=== PATIENT | female | born 1930 | race African-American/Black ===

== ENCOUNTER 2021-02-13 21:17 | Inpatient (IN) | payer OTHER ==
[2021-02-13] MEDS ORDERED: NA CHLORIDE 0.9% 1,000 ML ONE (23:24)
[2021-02-13 23:48] LABS: Absolute Lymphocytes (CBC) 1.2 K/uL (0.7-4.9); Basophils % 0.6 % (0-1.3); Hematocrit 34.9 % (36.0-45.0); Lymphocytes % 11.6 % (15.3-44.8); MPV 7.3 fL (7.6-11.3); RBC Red Blood Cell Count 3.64 M/uL (3.86-4.86)
[2021-02-14 00:01] LABS: Protime INR 1.24
[2021-02-14 00:02] LABS: Albumin 3.5 g/dL (3.4-5.0); Bilirubin Direct 0.2 mg/dL (0-0.2); Bilirubin Total 0.7 mg/dL (0.2-1.0); Magnesium 2.4 mg/dL (1.8-2.4); Potassium 4.5 mmol/L (3.5-5.1); Protein, Total 7.3 g/dL (6.4-8.2); Troponin (Emerg Dept Use Only) 0.1 ng/mL (0.0-0.045)
--- NOTE | 2021-02-14 00:09 | EDPHYS ---
Physician Documentation [facility] Name: Pamela Alvarez Age: 89 yrs Sex: Female : 1930 Arrival Date: 02/13/2021 Time: 21:21 Bed 16 Private MD: ED Physician Damian Alvares HPI: 02/13 22:31 This 89 yrs old Black Female presents to ER via EMS with complaints of Weakness. fang 22:31 The patient presents to the emergency department with weakness of the. fang Historical: - Allergies: 21:28 Sulfa (Sulfonamide Antibiotics); em - PMHx: 21:28 Arthritis; Chronic pain; High Cholesterol; Hypertension; GERD; em - PSHx: 21:28 None; em - Immunization history:: Adult Immunizations up to date. - Social history:: Smoking status: Patient denies any tobacco usage or history of. ROS: 22:32 Constitutional: Negative for fever, chills, and weight loss, Eyes: Negative for injury, fang pain, redness, and discharge, ENT: Negative for injury, pain, and discharge, Neck: Negative for injury, pain, and swelling, Cardiovascular: Negative for chest pain, palpitations, and edema, Respiratory: Negative for shortness of breath, cough, wheezing, and pleuritic chest pain, Abdomen/GI: Negative for abdominal pain, nausea, vomiting, diarrhea, and constipation, Back: Negative for injury and pain, : Negative for injury, bleeding, discharge, and swelling, Skin: Negative for injury, rash, and discoloration, Psych: Negative for depression, anxiety, suicide ideation, homicidal ideation, and hallucinations, Allergy/Immunology: Negative for hives, rash, and allergies, Endocrine: Negative for neck swelling, polydipsia, polyuria, polyphagia, and marked weight changes, Hematologic/Lymphatic: Negative for swollen nodes, abnormal bleeding, and unusual bruising. 22:32 MS/extremity: Negative for acute changes, injury or acute deformity, contusion. 22:32 Neuro: Positive for weakness. Exam: 22:32 Constitutional: This is a well developed, well nourished patient who is awake, alert, fang and in no acute distress. Head/Face: Normocephalic, atraumatic. Eyes: Pupils equal round and reactive to light, extra-ocular motions intact. Lids and lashes normal. Conjunctiva and sclera are non-icteric and not injected. Cornea within normal limits. Periorbital areas with no swelling, redness, or edema. ENT: Nares patent. No nasal discharge, no septal abnormalities noted. Tympanic membranes are normal and external auditory canals are clear. Oropharynx with no redness, swelling, or masses, exudates, or evidence of obstruction, uvula midline. Mucous membranes moist. Neck: Trachea midline, no thyromegaly or masses palpated, and no cervical lymphadenopathy. Supple, full range of motion without nuchal rigidity, or vertebral point tenderness. No Meningismus. Chest/axilla: Normal chest wall appearance and motion. Nontender with no deformity. No lesions are appreciated. Cardiovascular: Regular rate and rhythm with a normal S1 and S2. No gallops, murmurs, or rubs. Normal PMI, no JVD. No pulse deficits. Respiratory: Lungs have equal breath sounds bilaterally, clear to auscultation and percussion. No rales, rhonchi or wheezes noted. No increased work of breathing, no retractions or nasal flaring. Abdomen/GI: Soft, non-tender, with normal bowel sounds. No distension or tympany. No guarding or rebound. No evidence of tenderness throughout. Back: No spinal tenderness. No costovertebral tenderness. Full range of motion. Female : Normal external genitalia. Skin: Warm, dry with normal turgor. Normal color with no rashes, no lesions, and no evidence of cellulitis. MS/ Extremity: Pulses equal, no cyanosis. Neurovascular intact. Full, normal range of motion. Psych: Awake, alert, with orientation to person, place and time. Behavior, mood, and affect are within normal limits. 22:32 Neuro: Orientation: appropriate for stated age, no acute changes, Mentation: is normal, Memory: is normal, Cranial nerves: grossly normal, is grossly normal based on the patient's age, no acute changes, Cerebellar function: is grossly normal, is grossly normal based on the patient's age, no acute changes, Motor: is normal, is grossly normal based on the patient's age, no acute changes, moves all fours, strength is normal, Sensation: is normal, no obvious gross deficits, appropriate no acute changes, Gait: not tested. Deep tendon reflexes are 2+ (normal) in the bilateral brachioradialis, bicep, tricep and patellar and Achilles tendons, Babinski testing is normal, seizure activity, is not displayed by the patient. Vital Signs: 21:22 BP 128 / 56; Pulse 94; Resp 18; Temp 98.6(O); Pulse Ox 96% on R/A; Weight 76.2 kg; em Height 5 ft. 7 in. (170.18 cm); Pain 0/10; 02/14 00:00 BP 137 / 66; Pulse 88; Resp 25; Pulse Ox 100% on R/A; jb4 00:45 BP 133 / 63; Pulse 85; Resp 16; Pulse Ox 100% on R/A; jb4 02:08 BP 147 / 68 LA Supine; Pulse 80; oe 02:10 BP 124 / 49 LA Sitting; Pulse 88; oe 02:12 BP 118 / 57 LA Standing; Pulse 94; oe 03:00 BP 158 / 84; Pulse 94; Resp 16; Pulse Ox 97% on R/A; jb4 03:45 BP 125 / 55; Pulse 87; Resp 16; Pulse Ox 95% on R/A; jb4 02/13 21:22 Body Mass Index 26.31 (76.20 kg, 170.18 cm) em MDM: 02/13 21:44 Patient medically screened. fang 22:34 Differential diagnosis: Nonspecific abd pain. Differential Diagnosis altered mental fang status. Data reviewed: vital signs, nurses notes, diagnostic data from outside facility, cardiac enzymes, CBC, EKG, electrolytes, hepatic panel, radiologic studies, lab test result(s), CBC, electrolytes, hepatic panel, urinalysis, EKG. Data interpreted: sports doctor: rate is 94 beats/min, rhythm is regular, Pulse oximetry: on room air is 96 %. Test interpretation: by ED physician or midlevel provider: ECG, plain radiologic studies. Counseling: I had a detailed discussion with the patient and/or guardian regarding: the historical points, exam findings, and any diagnostic results supporting the discharge/admit diagnosis, lab results, radiology results, the need for outpatient follow up, for definitive care, an flight agent. 02/13 22:26 Order name: Basic Metabolic Panel [facility] 02/13 22: Order name: CBC with Diff; Complete Time: 23:57 [facility] 02/13 22: Order name: LFT's; Complete Time: 00:02 fang 02/13 22:26 Order name: Magnesium; Complete Time: 00:02 [facility] 02/13 22:26 Order name: NT PRO-BNP; Complete Time: 00:02 [facility] 02/13 22:26 Order name: PT-INR; Complete Time: 00:17 [facility] 02/13 22:26 Order name: Troponin (emerg Dept Use Only); Complete Time: 00:02 [facility] 02/13 22:26 Order name: Basic Metabolic Panel; Complete Time: 00:02 [facility] 02/14 00:05 Order name: Stool Culture [facility] 02/14 00:05 Order name: Occult Blood [facility] 02/14 00:05 Order name: Fecal Leukocyte Stain [facility] 02/14 02:23 Order name: COVID-19 : Document "Date of Symptom Onset" if Symptomatic. em 02/14 02:53 Order name: CORONAVIRUS [facility] 02/14 03:45 Order name: SARS-COV-2 RT PCR [facility] 02/13 22:26 Order name: XRAY Chest (1 view) [facility] 02/13 22:26 Order name: EKG; Complete Time: 22:27 [facility] 02/13 22:26 Order name: Cardiac monitoring; Complete Time: 23:36 [facility] 02/13 22:26 Order name: EKG - Nurse/Tech; Complete Time: 23:36 [facility] 02/13 22:26 Order name: IV Saline Lock; Complete Time: 23:36 [facility] 02/13 22:26 Order name: Labs collected and sent; Complete Time: 23:36 [facility] 02/13 22:26 Order name: O2 Per Protocol; Complete Time: 23:36 [facility] 02/13 22:26 Order name: O2 Sat Monitoring; Complete Time: 23:36 [facility] 02/13 22:26 Order name: CT Head Brain wo Cont [facility] 02/13 22:26 Order name: Orthostatics: after bolus; Complete Time: 02:20 [facility] 02/14 00:05 Order name: CT Abd/Pelvis - Without Contrast [facility] Administered Medications: 23:30 Drug: NS 0.9% 500 ml Route: IV; Rate: bolus; Site: right antecubital; jb4 02/14 00:00 Follow up: Response: No adverse reaction; IV Status: Completed infusion; IV Intake: jb4 500ml 00:28 Drug: NS 0.9% 1000 ml Route: IV; Rate: 125 ml/hr; Site: right antecubital; jb4 04:07 Follow up: Response: No adverse reaction; IV Status: Infusion continued upon admission jb4 Disposition: 02/14/21 00:08 Hospitalization ordered by Jose Jack for Inpatient Admission. Preliminary diagnosis are Weakness, Acute kidney failure, Diarrhea, unspecified. - Bed requested for Telemetry/MedSurg (Inpatient). - Status is Inpatient Admission. jb4 - Condition is Fair. - Problem is new. - Symptoms have improved. Signatures: Dispatcher [employer] EDDamian Johnson MD MD cha Munoz, Edgar, RN RN em Vijay Obando, FAMILY PSYCHOLOGIST-C FAMILY PSYCHOLOGIST-Cla1 Marianne Ortega RN RN Frantz Carvajal RN RN jb4 Corrections: (The following items were deleted from the chart) 03:46 00:08 Hospitalization Ordered by Jose Jack MD for Inpatient Admission. Preliminary cg diagnosis is Weakness; Acute kidney failure; Diarrhea, unspecified. Bed requested for Telemetry/MedSurg (Inpatient). Status is Inpatient Admission. Condition is Fair. Problem is new. Symptoms have improved. [facility] 04:08 06 22:26 Urine Dipstick-Ancillary ordered. [facility] jb4 02/14 04:10 03:46 02/14/2021 00:08 Hospitalization Ordered by Jose Jack MD for Inpatient jb4 Admission. Preliminary diagnosis is Weakness; Acute kidney failure; Diarrhea, unspecified. Bed requested for Telemetry/MedSurg (Inpatient). Status is Inpatient Admission. Condition is Fair. Problem is new. Symptoms have improved. cg
--- NOTE | 2021-02-14 00:09 | ER ---
Nurse's Notes [facility] Name: Pamela Alvarez Age: 89 yrs Sex: Female : 1930 Arrival Date: 02/13/2021 Time: 21:21 Bed 16 Private MD: Diagnosis: Weakness;Acute kidney failure;Diarrhea, unspecified Presentation: 02/13 21:22 Chief complaint: EMS states: called out for fall this morning, but did not seek medical em attention, family called EMS this evening for weakness and diarrhea for one day, pt denies chest pain or shortness of breath. Coronavirus screen: Client denies travel out of the [place] in the last 14 days. Ebola Screen: Patient negative for fever greater than or equal to 101.5 degrees Fahrenheit, and additional compatible Ebola Virus Disease symptoms Patient denies exposure to infectious person. Patient denies travel to an Ebola-affected area in the 21 days before illness onset. No symptoms or risks identified at this time. No acute neurological deficit is noted. The patients blood glucose was checked before arriving to the hospital and was found to be normal. Initial Sepsis Screen: Does the patient meet any 2 criteria? No. Patient's initial sepsis screen is negative. Does the patient have a suspected source of infection? No. Patient's initial sepsis screen is negative. Risk Assessment: Do you want to hurt yourself or someone else? Patient reports no desire to harm self or others. Onset of symptoms was February 13, 2021. 21:22 Method Of Arrival: EMS: [facility] em 21:22 Acuity: SARA 3 em Historical: - Allergies: 21:28 Sulfa (Sulfonamide Antibiotics); em - PMHx: 21:28 Arthritis; Chronic pain; High Cholesterol; Hypertension; GERD; em - PSHx: 21:28 None; em - Immunization history:: Adult Immunizations up to date. - Social history:: Smoking status: Patient denies any tobacco usage or history of. Screenin:15 Abuse screen: Denies threats or abuse. Nutritional screening: No deficits noted. jb4 Tuberculosis screening: No symptoms or risk factors identified. Fall Risk Fall in past 12 months (25 points). IV access (20 points). Gait- Weak (10 pts.). Assessment: 21:30 General: Appears in no apparent distress. comfortable, Behavior is calm, cooperative, jb4 appropriate for age. Pain: Denies pain. Neuro: Level of Consciousness is awake, alert, obeys commands, Oriented to person, place, time, situation. Cardiovascular: Patient's skin is warm and dry. Respiratory: Airway is patent Respiratory effort is even, unlabored, Respiratory pattern is regular, symmetrical. GI: Reports diarrhea. : No signs and/or symptoms were reported regarding the genitourinary system. EENT: No signs and/or symptoms were reported regarding the EENT system. Derm: Skin is intact, Skin is pink, warm \T\ dry. Musculoskeletal: Circulation, motion, and sensation intact. Range of motion: intact in all extremities. 23:00 Reassessment: Patient appears in no apparent distress at this time. Patient and/or jb4 family updated on plan of care and expected duration. Pain level reassessed. Patient is alert, oriented x 3, equal unlabored respirations, skin warm/dry/pink. 02/14 00:29 Reassessment: Patient appears in no apparent distress at this time. Patient and/or jb4 family updated on plan of care and expected duration. Pain level reassessed. Patient is alert, oriented x 3, equal unlabored respirations, skin warm/dry/pink. Pt cleaned, peritoneal care performed. Linens changed. Hospitalist at the bedside. 01:30 Reassessment: Patient appears in no apparent distress at this time. Patient and/or jb4 family updated on plan of care and expected duration. Pain level reassessed. Patient is alert, oriented x 3, equal unlabored respirations, skin warm/dry/pink. 02:30 Reassessment: PT is resting peacefully in bed with eyes closed, respirations are even jb4 and unlabored with no s/s of pain or distress noted. 03:30 Reassessment: Patient appears in no apparent distress at this time. No changes from jb4 previously documented assessment. Patient and/or family updated on plan of care and expected duration. Pain level reassessed. Vital Signs: 02/13 21:22 BP 128 / 56; Pulse 94; Resp 18; Temp 98.6(O); Pulse Ox 96% on R/A; Weight 76.2 kg; em Height 5 ft. 7 in. (170.18 cm); Pain 0/10; 02/14 00:00 BP 137 / 66; Pulse 88; Resp 25; Pulse Ox 100% on R/A; jb4 00:45 BP 133 / 63; Pulse 85; Resp 16; Pulse Ox 100% on R/A; jb4 02:08 BP 147 / 68 LA Supine; Pulse 80; oe 02:10 BP 124 / 49 LA Sitting; Pulse 88; oe 02:12 BP 118 / 57 LA Standing; Pulse 94; oe 03:00 BP 158 / 84; Pulse 94; Resp 16; Pulse Ox 97% on R/A; jb4 03:45 BP 125 / 55; Pulse 87; Resp 16; Pulse Ox 95% on R/A; jb4 02/13 21:22 Body Mass Index 26.31 (76.20 kg, 170.18 cm) em ED Course: 02/13 21:15 Patient has correct armband on for positive identification. Placed in gown. Bed in low jb4 position. Call light in reach. Side rails up X 1. hat braider on. Pulse ox on. NIBP on. 21:21 Patient arrived in ED. cf2 21:27 Triage completed. em 21:28 Arm band placed on. em 21:44 Damian Alvares MD is Attending Physician. fang 22:46 CT Head Brain wo Cont In Process Unspecified. EDMS 22:56 XRAY Chest (1 view) In Process Unspecified. EDMS 23:36 Frantz Carvajal, CHANTELLE is Primary Nurse. jb4 02/14 00:07 Jose Jack MD is Hospitalizing Provider. fang 03:49 No provider procedures requiring assistance completed. Patient admitted, IV remains in jb4 place. Administered Medications: 02/13 23:30 Drug: NS 0.9% 500 ml Route: IV; Rate: bolus; Site: right antecubital; jb4 02/14 00:00 Follow up: Response: No adverse reaction; IV Status: Completed infusion; IV Intake: jb4 500ml 00:28 Drug: NS 0.9% 1000 ml Route: IV; Rate: 125 ml/hr; Site: right antecubital; jb4 04:07 Follow up: Response: No adverse reaction; IV Status: Infusion continued upon admission jb4 Intake: 00:00 IV: 500ml; Total: 500ml. jb4 Outcome: 00:08 Decision to Hospitalize by Provider. fang 04:06 Admitted to Med/surg accompanied by tech, via stretcher, room 207, with chart, Report jb4 called to CHANTELLE Ashley 04:06 Condition: stable 04:06 Discharge instructions given to patient, Instructed on the need for admit, Demonstrated understanding of instructions. 04:10 Patient left the ED. jb4 Signatures: Dispatcher [employer] Damian Walker MD MD cha Munoz, Edgar, RN RN em Bryson, James, RN RN jb4 Teddy Jackson Celesta cf2 Corrections: (The following items were deleted from the chart) 02:23 02:08 BP 147 / 68 Supine; Pulse 80bpm; oe oe
--- NOTE | 2021-02-14 01:19 | P.HP ---
Certification for Inpatient Patient admitted to: Inpatient With expected LOS: >2 Midnights Patient will require the following post-hospital care: None Practitioner: I am a practitioner with admitting privileges, knowledge of patient current condition, hospital course, and medical plan of care. Services: Services provided to patient in accordance with Admission requirements found in Title 42 Section 412.3 of the Code of Federal Regulations Patient History Date of Service: 02/14/21 Primary Care Provider: Dr. Foss Reason for admission: Acute renal failure History of Present Illness: 89-year-old female with history of hypertension, hyperlipidemia presents emergency department for weakness, fall earlier in the day. Patient evaluated in the emergency department, labs significant for hemoglobin 11.7 hematocrit 34.9 sodium 134, BUN 44 creatinine 3.5 GFR 15 troponin 0.1 BNP 4254. Patient reports that she has had diarrhea over the course of the last 24 hr about 4-5 times so far, denies any abdominal pain, vomiting, dysuria, ROS otherwise negative. Patient denies any chest pain or shortness of breath. Pat ient was orthostatics positive, has been given fluids. ED provider wishes to admit for acute renal failure. Allergies Sulfa (Sulfonamide Antibiot Allergy (Uncoded 08/24/17 05:07) Unknown - Past Medical/Surgical History -: Hypertension -: Hyperlipidemia -: none Psychosocial/ Personal History: Patient lives alone and is retired - Family History Mother -: Stroke Sister -: Stroke - Social History Smoking Status: Never smoker Alcohol use: No CD- Drugs: No Caffeine use: No Place of Residence: Home Review of Systems 10-point ROS is otherwise unremarkable General: Weakness, Malaise Gastrointestinal: Diarrhea Physical Examination - Physical Exam General: Alert, In no apparent distress, Oriented x3 HEENT: Atraumatic, PERRLA, Other (Mucous membranes dry) Neck: Supple, 2+ carotid pulse no bruit, No LAD Respiratory: Clear to auscultation bilaterally, Normal air movement Cardiovascular: Regular rate/rhythm, Normal S1 S2 Gastrointestinal: Normal bowel sounds, No tenderness Musculoskeletal: No tenderness Integumentary: No rashes Neurological: Normal speech, Normal strength at 5/5 x4 extr, Normal tone, Normal affect - Studies Laboratory Data (last 24 hrs) 02/13/21 23:30: PT 14.3 H, INR 1.24 02/13/21 23:30: WBC 10.50, Hgb 11.7 L, Hct 34.9 L, Plt Count 186 02/13/21 23:30: Sodium 135 L, Potassium 4.5, BUN 44 H, Creatinine 3.50 H, Glucose 129 H, Magnesium 2.4, Total Bilirubin 0.7, AST 114 H, ALT 57, Alkaline Phosphatase 61 Microbiology Data (last 24 hrs): 02/14/21 00:05 Stool Stool Occult Blood (ELIER) - 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 Nephrology consulted, renal ultrasound ordered, uric acid, CPK, PTH levels ordered. Patient also with some diarrhea, stool studies have been ordered. DVT prophylaxis with heparin 5000 subcutaneous twice daily. Patient medication list reviewed although I am not sure how many of them she is currently taking, lisinopril is noted to the other, will need to discontinue the use of lisinopril for the time being. If she is still taking it. Appreciate further input from nephrology. Diarrhea: Stool studies ordered, no indication for antibiotic therapy at this time. Will continue to monitor closely. Likely contributing to dehydration/renal failure. No recent antibiotic use. Hypertension, hyperlipidemia: Stable, continue home medications. Avoid Lalit/arb/nsais Discharge Plan: Home Plan to discharge in: Greater than 2 days - Advance Directives Does patient have a Living Will: No Does patient have a Durable POA for Healthcare: No - Code Status/Comfort Care Code Status Assessed: Yes (Full code) Critical Care: No Time Spent Managing Pts Care (In Minutes): 55
[2021-02-14] MEDS ORDERED: ACETAMINOPHEN 500 MG TAB PO PRN (04:31)
[2021-02-14] MEDS ORDERED: ONDANSETRON 4 MG/2 ML VIAL IV PRN (04:31)
[2021-02-14] MEDS: NA CHLORIDE 0.9% 1,000 ML IV SCH ×2 (05:05→16:37)
[2021-02-14 05:43] LABS: Absolute Lymphocytes (CBC) 1.1 K/uL (0.7-4.9); Basophils % 0.8 % (0-1.3); Hematocrit 32.9 % (36.0-45.0); Lymphocytes % 10.2 % (15.3-44.8); MPV 7.1 fL (7.6-11.3); RBC Red Blood Cell Count 3.42 M/uL (3.86-4.86)
[2021-02-14 06:28] LABS: Albumin 3.2 g/dL (3.4-5.0); Bilirubin Total 0.5 mg/dL (0.2-1.0); Magnesium 2.2 mg/dL (1.8-2.4); Potassium 4.2 mmol/L (3.5-5.1); Protein, Total 6.6 g/dL (6.4-8.2); Thyroid Stimulating Hormone 0.8 uIU/mL (0.360-3.740); Troponin I 0.08 ng/mL (0.0-0.045); Uric Acid 5.4 mg/dL (2.6-6.0)
--- NOTE | 2021-02-14 06:57 | P.CNS ---
Date of Consult: 02/14/21 Reason for Consult: Renal failure Requesting Physician: Jose Jack Primary Care Provider: Dr. Foss Chief Complaint: Acute renal failure History of Present Illness: 89 yo AAF w/ PMHx of Htn & HLD, who p/w fall at home, diarrhea, & generalized weakness, found to have renal failure, admitted for further eval & mngt. She reports having loose stools for the past 24 hrs. She was found down. Family states she may have been lying down on the floor for about 7 hrs. She denied CP, SOB, or fever. CK level elevated at 5500. Orthostatic received IV fluids. Initial SCr 3.5. Baseline SCr 0.7 in Aug 2017. Received IV fluids. SCr improved to 3.2. Allergies No Known Allergies Allergy (Unverified 02/14/21 04:21) Home Medications: Amlodipine [Norvasc] 10 mg PO DAILY 02/14/21 Atorvastatin Calcium [Lipitor] 10 mg PO BEDTIME 02/14/21 Doxazosin [Cardura] 4 mg PO BEDTIME 02/14/21 Gabapentin 300 mg PO BID 02/14/21 Lisinopril [Zestril] 40 mg PO DAILY 02/14/21 Metoprolol Succinate 50 mg PO DAILY 02/14/21 OXcarbazepine [Trileptal] 300 mg PO BID 02/14/21 Omeprazole 20 mg PO DAILY 02/14/21 Spironolactone [Aldactone] 25 mg PO DAILY 02/14/21 - Past Medical/Surgical History Diabetic: No -: Hypertension -: Hyperlipidemia -: none Psychosocial/ Personal History: Patient lives alone and is retired - Family History Mother Medical History: Stroke Sister Medical History: Stroke - Social History Alcohol use: No CD- Drugs: No Caffeine use: No Place of Residence: Home Review of Systems General: Weakness Eyes: Unremarkable ENT: Unremarkable Respiratory: Unremarkable Cardiovascular: Unremarkable Gastrointestinal: Diarrhea Genitourinary: Unremarkable Musculoskeletal: As per HPI Integumentary: Unremarkable Neurological: Weakness Lymphatics: Unremarkable Physical Examination Temp Pulse Resp BP Pulse Ox 97.1 F 84 16 135/60 96 02/14/21 04:00 02/14/21 04:00 02/14/21 04:00 02/14/21 04:00 02/14/21 04:00 General: In no apparent distress, Other (Appears as her stated age) HEENT: Atraumatic, Normocephalic Neck: Supple Respiratory: Normal air movement Cardiovascular: No rubs, No murmurs Gastrointestinal: Soft and benign, Non-distended Musculoskeletal: No clubbing Integumentary: Other (Normal temp) Neurological: Normal speech, Normal tone Lymphatics: No axilla or inguinal lymphadenopathy Urinary: Other (No bladder distention) External genitalia: Deferred Rectal: Deferred Laboratory Data (last 24 hrs) 02/13/21 23:30: PT 14.3 H, INR 1.24 02/13/21 23:30: WBC 10.50, Hgb 11.7 L, Hct 34.9 L, Plt Count 186 02/13/21 23:30: Sodium 135 L, Potassium 4.5, BUN 44 H, Creatinine 3.50 H, Glucose 129 H, Magnesium 2.4, Total Bilirubin 0.7, AST 114 H, ALT 57, Alkaline Phosphatase 61 Conclusions/Impression: # GIDEON vs GIDEON on CKD 2/2 prerenal state from diarrhea & dec po fluid intake + rhabdomyolysis Baseline SCr 0.7 as of Aug 2017 Renal US showed symmetric small kidneys PTH wnl indicative of no advanced CKD at baseline F/u urinalysis, random UPCR, urine chem CK level 5500 BNP elevated Cont IV fluids, d/c if w/ SOB Encourage po fluid intake Monitor renal panel, I/O Hold lisinopril # Orthostasis IV/po hydration as above Recheck orthostatic vitals tomorrow Fall prec # Htn BP lying/sitting stable Hold lisinopril # Acute diarrhea F/u stool studies Hydration as above # Debility OOB w/ PT/OT
--- NOTE | 2021-02-14 09:03 | RAD REPORT ---
EXAM DESCRIPTION: Dora Single View02/13/2021 10:59 pm CLINICAL HISTORY: Cough COMPARISON: 2005 FINDINGS: Left hemidiaphragm is mildly elevated Lungs appear clear of acute infiltrate. Heart is mildly enlarged
[2021-02-14] MEDS: HEPARIN 5000 UNIT/ML 1 ML VIAL SQ SCH ×2 (09:17→20:57)
--- NOTE | 2021-02-14 10:27 | RAD REPORT ---
EXAM DESCRIPTION: US - Renal Ultrasound-Complete - 02/14/2021 9:52 am CLINICAL HISTORY: Acute renal failure COMPARISON: February 14, 2021 cat scan FINDINGS: The right kidney measures 8 cm with a normal echotexture. The left kidney measures 8 cm with a normal echotexture. Hydronephrosis is not seen. No gross abnormality of bladder IMPRESSION: Unremarkable renal ultrasound.
--- NOTE | 2021-02-14 12:04 | RAD REPORT ---
EXAM DESCRIPTION: CT - Head Brain Wo Cont - 02/14/2021 4:24 am COMPARISON: None. CLINICAL HISTORY: WEAKNESS TECHNIQUE: Axial images were obtained from skull base to vertex without intravenous contrast. Imag es viewed on bone and brain windows. Multiplanar reformats were performed. Automated exposure contr ol was utilized on this examination as a dose lowering technique. FINDINGS: Brain parenchyma, ventricles, dura, meninges, and extra-axial spaces: Moderate generalized cerebral and cerebellar volume loss is present. Moderate hypodensities in the subcortical white rusty er of both hemispheres are nonspecific but likely relate to chronic small vessel disease. No acute in tracranial hemorrhage or abnormal extra-axial fluid collections. Empty sella is noted. Vascular structures: No hyperdense arteries or veins. Calvarium, mastoid air cells, paranasal sinuses and orbits: The calvarium is normal. The mastoid air cells are clear. Visualized paranasal sinuses are unremarkable. Orbital structures are unremarkable. IMPRESSION: 1. No acute intracranial abnormality. 2. Moderate senescent changes. 3. Empty sella. Electronically signed by: Gee Mims MD 02/13/2021 11:08 PM CDT Due to temporary technical issues with the PACS/Fluency reporting system, reports are being signed by the in house radiologist without review as a courtesy to ensure prompt reporting. The interpreting r adiologist is fully responsible for the content of the report.
--- NOTE | 2021-02-14 12:05 | RAD REPORT ---
EXAM DESCRIPTION: CT - Abdomen Pelvis Wo Contrast - 02/14/2021 4:22 am COMPARISON: None. CLINICAL HISTORY: [facility] MAIN PAIN TECHNIQUE: CT of the abdomen and pelvis was acquired without IV contrast material. Coronal and sag ittal reconstructions were obtained. Automated exposure control was utilized on this examination as a dose lowering technique. FINDINGS: Lung bases: Clear. *Evaluation of solid organs is limited due to lack of IV contrast. Liver: Normal. Gallbladder and biliary: Normal gallbladder. Unremarkable biliary tree. Pancreas: Normal. Spleen: Small calcified granulomas are noted in the spleen. Adrenal glands: Normal adrenal glands. Kidneys: Normal kidneys Stomach and Small Bowel: The stomach and small bowel are normal. Urinary bladder: Normal. Uterus and Adnexa: Normal. Colon and Appendix: Severe descending and sigmoid colon diverticulosis. Moderate diverticulosis other friedman. No evidence of appendicitis. Retroperitoneum and lymph nodes: Normal. Vascular: Moderate multivessel calcified atherosclerosis. Peritoneal cavity: No ascites or free air. Musculoskeletal and soft tissues: Soft tissues are unremarkable. Lumbar spondylosis. No aggressive narcisa ne lesions. No compression fracture. IMPRESSION: 1. No acute intra-abdominal abnormality. 2. Severe diverticulosis. 3. Moderate atherosclerosis. Electronically signed by: Gee Mims MD 02/14/2021 2:08 AM CDT Due to temporary technical issues with the PACS/Fluency reporting system, reports are being signed by the in house radiologist without review as a courtesy to ensure prompt reporting. The interpreting r adiologist is fully responsible for the content of the report.
--- NOTE | 2021-02-14 16:43 | P.PN ---
Subjective Date of Service: 02/14/21 Primary Care Provider: Dr. Foss Chief Complaint: Acute renal failure Subjective: No new changes (no significant change since admission earlier this morning) Review of Systems 10-point ROS is otherwise unremarkable Physical Examination - Vital Signs Temperature: 98.5 F Blood Pressure: 147/72 Pulse: 82 Respirations: 16 Pulse Ox (%): 97 - Studies Laboratory Data (last 24 hrs) 02/13/21 23:30: PT 14.3 H, INR 1.24 02/13/21 23:30: WBC 10.50, Hgb 11.7 L, Hct 34.9 L, Plt Count 186 02/13/21 23:30: Sodium 135 L, Potassium 4.5, BUN 44 H, Creatinine 3.50 H, G lucose 129 H, Magnesium 2.4, Total Bilirubin 0.7, AST 114 H, ALT 57, Alkaline Phosphatase 61 Microbiology Data (last 24 hrs): 02/14/21 00:05 Stool Stool Occult Blood (ELIER) - Final VAMP LINER Assessment & Plan Physician Review Additional Text: Physical Exam General: Alert, In no apparent distress, Oriented x3 HEENT: mucous membranes dry, normal conjunctiva Respiratory: Clear to auscultation bilaterally, Normal air movement Cardiovascular: Regular rate/rhythm, Normal S1 S2 Gastrointestinal: soft, nontender, nondistended Integumentary: No rashes Neurological: Normal speech, Normal affect Problem List Fall / ?Syncopal episode Acute renal failure likely secondary to dehydration Diarrhea Hypertension, hyperlipidemia -unclear etiology of fall, patient poor historian ,doesn't remember all events, remembers getting up out of bed, and then was on floor, unclear how long, seems like most of night until niece found her -orthostatics positive on admission, less severe this morning -GIDEON, likely due to dehydration, possible rhabdo - CPK elevated, pt was on floor for some time -hold lisinopril /nephrotoxic medications -continue IVF, will review if any history of chf, may need more aggressive fluids given CPK / concern for rhabdo -stool studies ordered for diarrhea -will review further with family Time Spent Managing Pts Care (In Minutes): 40
[2021-02-15 03:56] VITALS: BMI 26.5
[2021-02-15 04:15] LABS: Urine Appearance CLEAR (Clear); Urine Bilirubin NEGATIVE (Negative); Urine Blood 1+ (Negative); Urine Color YELLOW (Yellow); Urine Glucose NEGATIVE (Negative); Urine Protein TRACE (Negative); Urine Specific Gravity 1.015 (1.005-1.030); Urine Urobilinogen 0.2 mg/dL (0.2-1.0); Urine pH 5.5 (5.0-7.0)
[2021-02-15 04:21] LABS: Urine Microscopic Reflex ORDER UMIC
[2021-02-15 04:22] LABS: Urine Protein/Creatinine Ratio 0.48 ratio (<0.15)
[2021-02-15 04:32] LABS: Urine Amorphous Sediment 2+ /HPF (NONE SEEN); Urine Bacteria >50 /HPF (<20); Urine Mucus 2+ /HPF (NONE SEEN)
[2021-02-15 04:33] LABS: Urine Coarse Granular Casts 0-5 /LPF (NONE SEEN)
[2021-02-15] MEDS: NA CHLORIDE 0.9% 1,000 ML IV SCH ×3 (05:58→21:16)
[2021-02-15 06:44] LABS: Absolute Lymphocytes (CBC) 1.2 K/uL (0.7-4.9); Basophils % 1.1 % (0-1.3); Hematocrit 30.1 % (36.0-45.0); Lymphocytes % 15.9 % (15.3-44.8); MPV 7.7 fL (7.6-11.3); RBC Red Blood Cell Count 3.13 M/uL (3.86-4.86)
[2021-02-15 06:57] LABS: Albumin 2.7 g/dL (3.4-5.0); Bilirubin Total 0.5 mg/dL (0.2-1.0); Magnesium 2.1 mg/dL (1.8-2.4); Potassium 4.1 mmol/L (3.5-5.1); Protein, Total 5.9 g/dL (6.4-8.2)
--- NOTE | 2021-02-15 07:20 | P.PN ---
Subjective Date of Service: 02/15/21 Primary Care Provider: Dr. Foss Chief Complaint: Acute renal failure Subjective: Improving (feeling better, more energy/strength returning. soreness to R hip and R shoulder. reports she remembers the fall and denies passing out, just felt "something" before falling down) Review of Systems 10-point ROS is otherwise unremarkable Physical Examination - Vital Signs Temperature: 97.7 F Blood Pressure: 153/69 Pulse: 87 Respirations: 17 Pulse Ox (%): 91 Assessment & Plan Physician Review Additional Text: Physical Exam General: Alert, In no apparent distress, Oriented x3 HEENT: mucous membranes dry, normal conjunctiva Respiratory: Clear to auscultation bilaterally, Normal air movement Cardiovascular: Regular rate/rhythm, Normal S1 S2 Gastrointestinal: soft, nontender, nondistended Integumentary: No rashes MSK: mild tenderness on lateral R hip, full ROM Neurological: Normal speech, Normal affect Problem List Fall / ?Syncopal episode Acute renal failure likely secondary to dehydration rhabdomyolysis Diarrhea Hypertension, hyperlipidemia -unclear etiology of fall, patient poor historian, initially didn't remember all events, remembers better today, was down on floor for several hours -orthostatics positive on admission, improved yesterday, will repeat today -GIDEON, likely due to dehydration, and component of rhabdo - CPK elevated -Cr and CPK pending this morning, will f/u -hold lisinopril /nephrotoxic medications -continue IVF for now, adjust as needed -stool studies ordered for diarrhea, pt reports it is improved -urine with bacteruria but +squams, pt denies any urinary changes/complaints, afebrile -PT consulted Dispo: anticipate dc in the next 24-48hrs pending further improvement, PT eval will discuss dispo planning with patient and family further after PT eval and results Pt lives home alone and stated she would like to go back home Time Spent Managing Pts Care (In Minutes): 35
[2021-02-15] MEDS: HEPARIN 5000 UNIT/ML 1 ML VIAL SQ SCH ×2 (09:35→21:16)
--- NOTE | 2021-02-15 11:50 | P.PN ---
Subjective Date of Service: 02/16/21 Primary Care Provider: Dr. Foss Chief Complaint: Acute renal failure 89 yo AAF w/ PMHx of Htn & HLD, who p/w fall at home, diarrhea, & generalized weakness, found to have renal failure, admitted for further eval & mngt. She reports having loose stools for the past 24 hrs. She was found down. Family states she may have been lying down on the floor for about 7 hrs. She denied CP, SOB, or fever. CK level elevated at 5500. Orthostatic received IV fluids. Initial SCr 3.5. Baseline SCr 0.7 in Aug 2017. Received IV fluids. SCr improved to 3.2. Today cr down to 1.1 , CPK 3000 will cont IVF If CPK cont to improve by tomorrow then pt can be discharged from nephrology point of view to hold any statins Physical exam general: AAOX3, NAD Neck; Supple, No elevated JVD hear: RRR, normal S1,2 no murmur or rub Chest: CTAB, no rales or wheezes Abdomen: Soft , Nt Extremities No edema or ulcer # GIDEON vs GIDEON on CKD 2/2 prerenal state from diarrhea & dec po fluid intake + rhabdomyolysis resolved Renal US showed symmetric small kidneys Cont IV fluids Encourage po fluid intake Monitor renal panel, I/O Hold lisinopril # rhabdomyolysis improving Cont IVF to hold Lipitor after discharged # OA f/u with PCP as an OP # Htn BP lying/sitting stable Hold lisinopril # Acute diarrhea CT : colittis F/u stool studies Hydration as above # Debility OOB w/ PT/OT total time spent 45 in Physical Examination - Vital Signs Temperature: 97.7 F Blood Pressure: 153/69 Pulse: 87 Respirations: 17 Pulse Ox (%): 91
[2021-02-15] MEDS: AMLODIPINE 10 MG TAB PO SCH (16:12)
[2021-02-15] MEDS ORDERED: DOXAZOSIN 2 MG TAB ONE (20:50)
[2021-02-15] MEDS: DOXAZOSIN 4 MG TAB PO SCH (21:00)
[2021-02-15] MEDS: GABAPENTIN 300 MG CAP PO SCH (21:15)
[2021-02-15] MEDS: OXcarbazepine 150 MG TAB PO SCH (21:15)
[2021-02-16] MEDS: NA CHLORIDE 0.9% 1,000 ML IV SCH ×3 (05:26→21:09)
[2021-02-16 05:57] LABS: Absolute Lymphocytes (CBC) 1.3 K/uL (0.7-4.9); Basophils % 1.1 % (0-1.3); Hematocrit 31.5 % (36.0-45.0); Lymphocytes % 22.1 % (15.3-44.8); MPV 7.4 fL (7.6-11.3)
[2021-02-16 06:34] LABS: Magnesium 1.9 mg/dL (1.8-2.4); Potassium 3.9 mmol/L (3.5-5.1)
--- NOTE | 2021-02-16 07:45 | P.PN ---
Subjective Date of Service: 02/16/21 Primary Care Provider: Dr. Foss Chief Complaint: Acute renal failure Subjective: Improving (feeling better, denies diarrhea, no dysuria, still very weak, worked with PT yesterday agrees with need for SNF/rehab) Review of Systems 10-point ROS is otherwise unremarkable Physical Examination - Vital Signs Temperature: 97.6 F Blood Pressure: 162/74 Pulse: 106 Respirations: 18 Pulse Ox (%): 94 Assessment & Plan Physician Review Additional Text: Physical Exam General: Alert, In no apparent distress, Oriented x3 HEENT: mucous membranes moist, normal conjunctiva Respiratory: Clear to auscultation bilaterally, Normal air movement Cardiovascular: Regular rate/rhythm, Normal S1 S2 Gastrointestinal: soft, nontender, nondistended Integumentary: No rash/lesions Neurological: Normal speech, Normal affect, moves all extremities Problem List Fall / ?Syncopal episode, likely secondary to orthostasis Acute renal failure likely secondary to dehydration rhabdomyolysis, improved Diarrhea, resolved Hypertension, hyperlipidemia -unclear etiology of fall, patient doesn't recall all events completely, but does state she remembers falling, can't elaborate. on floor for several hours -orthostatics positive on admission, improved with IVF -GIDEON, likely due to dehydration, and component of rhabdo - CPK elevated on admission -renal function and CPK significantly improved with IVF -hold lisinopril /nephrotoxic medications -pt becoming more hypertensive, will adjust, PRN hydralazine -stool studies ordered for diarrhea, however no longer having diarrhea -urine with bacteruria but +squams, pt denies any urinary changes/complaints, afebrile, culture: mixed darling -PT consulted Dispo: anticipate dc in the next 24-48hrs, patient and family agreeable to SNF patient very weak and lives home alone, unsafe to dc home at this time SW/CM consulted Time Spent Managing Pts Care (In Minutes): 35
[2021-02-16] MEDS ORDERED: POTASSIUM CL SA 10 MEQ TAB PO ONE (09:00)
[2021-02-16] MEDS: AMLODIPINE 10 MG TAB PO SCH (09:02)
[2021-02-16] MEDS: SPIRONOLACTONE 25 MG TABLET PO SCH (09:02)
[2021-02-16] MEDS: HEPARIN 5000 UNIT/ML 1 ML VIAL SQ SCH ×2 (09:02→21:08)
[2021-02-16] MEDS: OXcarbazepine 150 MG TAB PO SCH ×2 (09:03→21:08)
[2021-02-16] MEDS: GABAPENTIN 300 MG CAP PO SCH ×2 (09:03→21:08)
[2021-02-16] MEDS: METOPROLOL XL 50 MG TAB PO SCH (09:03)
[2021-02-16] MEDS ORDERED: HYDRALAZINE HCL 20 MG/ML VIAL IV PRN (09:56)
--- NOTE | 2021-02-16 13:34 | P.PN ---
Subjective Date of Service: 02/16/21 Primary Care Provider: Dr. Foss Chief Complaint: Acute renal failure 89 yo AAF w/ PMHx of Htn & HLD, who p/w fall at home, diarrhea, & generalized weakness, found to have renal failure, admitted for further eval & mngt. She reports having loose stools for the past 24 hrs. She was found down. Family states she may have been lying down on the floor for about 7 hrs. She denied CP, SOB, or fever. CK level elevated at 5500. Orthostatic received IV fluids. Initial SCr 3.5. Baseline SCr 0.7 in Aug 2017. Received IV fluids. SCr improved to 3.2. Today cr down to 0.8 , CPK 1300 Started on Aldactone If CPK cont to improve by tomorrow then pt can be discharged from nephrology point of view to hold any statins Physical exam general: AAOX3, NAD Neck; Supple, No elevated JVD hear: RRR, normal S1,2 no murmur or rub Chest: CTAB, no rales or wheezes Abdomen: Soft , Nt Extremities No edema or ulcer # GIDEON vs GIDEON on CKD 2/2 prerenal state from diarrhea & dec po fluid intake + rhabdomyolysis resolved Renal US showed symmetric small kidneys Cont IV fluids Encourage po fluid intake Monitor renal panel, I/O Hold lisinopril # rhabdomyolysis improving Cont IVF to hold Lipitor after discharged # OA f/u with PCP as an OP # Htn started on Aldactone better controlled Hold lisinopril # Acute diarrhea CT : colittis F/u stool studies Hydration as above # Debility OOB w/ PT/OT total time spent 45 in Physical Examination - Vital Signs Temperature: 97.7 F Blood Pressure: 153/69 Pulse: 87 Respirations: 17 Pulse Ox (%): 91
[2021-02-16] MEDS ORDERED: DOXAZOSIN 2 MG TAB ONE (20:11)
[2021-02-16] MEDS: DOXAZOSIN 4 MG TAB PO SCH (21:00)
[2021-02-17] MEDS: NA CHLORIDE 0.9% 1,000 ML IV SCH (03:01)
[2021-02-17 05:37] LABS: Absolute Lymphocytes (CBC) 1.6 K/uL (0.7-4.9); Hematocrit 26.9 % (36.0-45.0); Lymphocytes % 27.8 % (15.3-44.8); MPV 7.1 fL (7.6-11.3); RBC Red Blood Cell Count 2.85 M/uL (3.86-4.86)
[2021-02-17] MEDS: GABAPENTIN 300 MG CAP PO SCH ×2 (09:11→20:30)
[2021-02-17] MEDS: SPIRONOLACTONE 25 MG TABLET PO SCH (09:12)
[2021-02-17] MEDS: OXcarbazepine 150 MG TAB PO SCH ×2 (09:12→20:30)
[2021-02-17] MEDS: METOPROLOL XL 50 MG TAB PO SCH (09:12)
[2021-02-17] MEDS: AMLODIPINE 10 MG TAB PO SCH (09:12)
[2021-02-17] MEDS: HEPARIN 5000 UNIT/ML 1 ML VIAL SQ SCH ×2 (09:13→20:27)
--- NOTE | 2021-02-17 12:33 | P.PN ---
Subjective Date of Service: 02/17/21 Primary Care Provider: Dr. Foss Chief Complaint: Acute renal failure Subjective: Improving (feels better, getting energy and strength back slowly. appetite improved labs improving, patient and family agreeable to SNF for PT) Review of Systems 10-point ROS is otherwise unremarkable Physical Examination - Vital Signs Temperature: 98.5 F Blood Pressure: 153/68 Pulse: 95 Respirations: 20 Pulse Ox (%): 97 Assessment & Plan Physician Review Additional Text: Physical Exam General: Alert, In no apparent distress, Oriented x3 HEENT: mucous membranes moist, normal conjunctiva Respiratory: Clear to auscultation bilaterally, Normal air movement Cardiovascular: Regular rate/rhythm, Normal S1 S2 Gastrointestinal: soft, nontender, nondistended Integumentary: No rash/lesions Neurological: Normal speech, Normal affect, moves all extremities Problem List Fall / Syncopal episode, secondary to orthostasis Acute renal failure, prerenal - secondary to dehydration rhabdomyolysis, improved Diarrhea, resolved Hypertension, hyperlipidemia -consistent with syncopal episode, patient with +orthostatic vitals in ER, GIDEON, and improved with IVF -family report patient hasn't been drinking much water lately, +diarrhea as well prior to admit -GIDEON improved/resolved now -pt with rhabdo, CPK downtrending with IVF -hold lisinopril /nephrotoxic medications -stool studies ordered for diarrhea, however no longer having diarrhea -urine with bacteruria but +squams, pt denies any urinary changes/complaints, afebrile, culture: mixed darling, no antibiotic at this time -PT consulted - recommend SNF vs inpatient rehab, pt is unsafe to go home alone. Does not have option to stay with family Dispo: anticipate dc in the next 24-48hrs, patient very weak and lives home alone, unsafe to dc home at this time SW/CM consulted for SNF Time Spent Managing Pts Care (In Minutes): 35
[2021-02-17] MEDS: DOXAZOSIN 4 MG TAB PO SCH (20:37)
[2021-02-17] MEDS ORDERED: DOXAZOSIN 2 MG TAB ONE ×2 (20:47→20:52)
--- NOTE | 2021-02-18 00:29 | PN ---
Date of Progress Note: 02/17/2021 Chief Complaint: Acute kidney injury, nonoliguric. History Of Present Illness: The patient was found to have rhabdomyolysis, lyla up to 5500 and is gradually improving. The patient received IV fluids for hypovolemia. The patient was orthostatic, b ut symptoms resolved with IV fluids and hydration. CPK level is gradually improving, yesterday was 13,000. The patient is an 89-year-old woman with his tory of hypertension, hyperlipidemia. She sustained fall at home. She also had diarrhea and general ized weakness and on arrival to the hospital, she was found to have acute kidney injury. She is feel ing better today. She denies nausea, vomiting, diarrhea, chest pain, palpitation. Denies syncope. Physical Examination: Lungs: Clear to auscultation bilaterally. Heart: S1, S2. Abdomen: Soft, benign. Extremities: No edema. 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 The patient had severe prerenal azotemia, nonoliguric acute tubular necrosis. Renal function is gradually improving. The patient is respondin g to IV fluids and rhabdomyolysis is resolving. Ultrasound showed symmetric small kidneys, which may develop chronic kidney disease stage 2 and possible stage 3. Continue to encourage p.o. fluid intak e to prevent renal hypoperfusion. The patient was taken off lisinopril due to acute kidney injury. 2.Rhabdomyolysis, improving with IV fluids. Lipitor is on hold due to rhabdomyolysis. Rhabdomyolysis is due to the fall. 3.Osteoarthritis. Avoid nonsteroidal anti-inflammatory medication. EB/MODL Voice ID: [id number] Report ID: [id number]
[2021-02-18 06:15] LABS: Absolute Lymphocytes (CBC) 1.3 K/uL (0.7-4.9); Lymphocytes % 24.2 % (15.3-44.8); MPV 7.2 fL (7.6-11.3); RBC Red Blood Cell Count 2.87 M/uL (3.86-4.86)
[2021-02-18 06:22] LABS: Magnesium 1.7 mg/dL (1.8-2.4); Potassium 3.8 mmol/L (3.5-5.1)
[2021-02-18 07:24] LABS: Blood Morphology Comment NOT SEEN (NOT SEEN); Platelet Estimate ADEQ
[2021-02-18] MEDS ORDERED: POTASSIUM CL SA 10 MEQ TAB PO ONE (09:00)
[2021-02-18] MEDS ORDERED: MAGNESIUM SULFATE 1 gm IVPB 1 GM/100 ML BAG IV ONE (09:00)
[2021-02-18] MEDS: METOPROLOL XL 50 MG TAB PO SCH (09:29)
[2021-02-18] MEDS: OXcarbazepine 150 MG TAB PO SCH ×2 (09:30→21:40)
[2021-02-18] MEDS: SPIRONOLACTONE 25 MG TABLET PO SCH (09:30)
[2021-02-18] MEDS: AMLODIPINE 10 MG TAB PO SCH (09:31)
[2021-02-18] MEDS: HEPARIN 5000 UNIT/ML 1 ML VIAL SQ SCH ×2 (09:31→21:41)
[2021-02-18] MEDS: GABAPENTIN 300 MG CAP PO SCH ×2 (09:31→21:40)
--- NOTE | 2021-02-18 11:42 | PN ---
Date of Progress Note: 02/18/2021 Subjective: The patient was admitted with acute kidney injury secondary to prerenal. The patient's after hydration kidney function has been normalized. The patient had rhabdomyolysis with elevation i n her CK up to 13,000. Physical Examination: Vital Signs: When I saw the patient; blood pressure 151/68, pulse of 83, afebrile. The patient had good urine output. Chest: Clear to auscultation. Heart: S1, S2. Systolic murmur. Abdomen: Soft, nontender. Extremities: No edema. Laboratory Data: WBC 5.2, H and H 9.3/27. Sodium 138, potassium 3.8, bicarb 26, BUN 13, creatinine down to 0.8, magnesium 1.7, calcium 8.1. CK down to 626. PTH 67. TSH of 8. Current Medications: The patient on include amlodipine 10 mg, Cardura 4 mg, metoprolol 50, spironola ctone 25, magnesium oxide 1 g, KCl. Assessment And Plan: 1.Acute kidney injury, multifactorial, secondary to prerenal, superimposed with rhabdomyolysis, florinda carl, resolved. Discontinue IV fluid. We will monitor the patient. 2.Hypokalemia, hypomagnesemia. We will supplement. 3.Rhabdomyolysis secondary to statin. Keep holding all statin. Recovered. No need for IV fluid. 4.Hypertension, currently not controlled. The patient is going to be a good candidate as outpatient for REGGIE inhibitor or ARB. Continue current medication. I am going to go ahead and increase her metoprolol to 100 and we will follow up. The patient cleared from the Renal standpoint for discharge planning. FAROOQ Voice ID: [id number] Report ID: [id number]
--- NOTE | 2021-02-18 14:02 | P.PN ---
Subjective Date of Service: 02/18/21 Primary Care Provider: Dr. Foss Chief Complaint: Acute renal failure Patient has no complain. She is ambulating well with physical therapy. She ambulated about 270 feet with a rolling walker. Physical Examination - Vital Signs Temperature: 98.8 F Blood Pressure: 149/65 Pulse: 76 Respirations: 16 Pulse Ox (%): 95 - Physical Exam General: Alert, In no apparent distress, Oriented x3 HEENT: Mucous membr. moist/pink Neck: Supple, JVD not distended Respiratory: Clear to auscultation bilaterally, Normal air movement Cardiovascular: No edema, Regular rate/rhythm, Normal S1 S2 Gastrointestinal: Normal bowel sounds, Soft and benign, Non-distended, No tenderness Musculoskeletal: No swelling Integumentary: No rashes Neurological: Normal strength at 5/5 x4 extr Assessment And Plan Physician Review Additional Text: Problem List Fall / Syncopal episode, secondary to orthostasis Acute renal failure, prerenal - secondary to dehydration rhabdomyolysis, improved Diarrhea, resolved Hypertension, hyperlipidemia -consistent with syncopal episode, patient with +orthostatic vitals in ER, GIDEON, and improved with IVF -family report patient hasn't been drinking much water lately, +diarrhea as well prior to admit -GIDEON improved/resolved now -pt with rhabdo, CPK trended down significantly. -lisinopril on hold. -urine with bacteruria but +squams, pt denies any urinary changes/complaints, afebrile, culture: mixed darling, no antibiotic at this time -continue PT -awaiting SNF placement.
[2021-02-18] MEDS: DOXAZOSIN 4 MG TAB PO SCH (21:40)
[2021-02-19 06:59] LABS: Magnesium 1.9 mg/dL (1.8-2.4); Potassium 4.1 mmol/L (3.5-5.1)
[2021-02-19] MEDS ORDERED: METOPROLOL XL 100 MG TAB PO SCH (09:00)
[2021-02-19] MEDS: SPIRONOLACTONE 25 MG TABLET PO SCH (10:19)
[2021-02-19] MEDS: OXcarbazepine 150 MG TAB PO SCH (10:20)
[2021-02-19] MEDS: HEPARIN 5000 UNIT/ML 1 ML VIAL SQ SCH (10:20)
[2021-02-19] MEDS: GABAPENTIN 300 MG CAP PO SCH (10:20)
[2021-02-19] MEDS: AMLODIPINE 10 MG TAB PO SCH (10:20)
[2021-02-19 10:30] VITALS: O2SAT 96
[2021-02-19] MEDS ORDERED: MAGNESIUM SULFATE 1 gm IVPB 1 GM/100 ML BAG IV ONE (10:44)
--- NOTE | 2021-02-19 12:07 | PN ---
Date of Progress Note: 02/19/2021 Subjective: The patient was admitted with acute kidney injury secondary to prerenal. The patient is off IV fluid. The patient had depleted electrolyte. The patient is feeling better, participating i n physical therapy. Physical Examination: Vital Signs: Blood pressure 149/65, pulse of 87, afebrile, has been better than yesterday. Chest: Clear to auscultation. Heart: S1, S2. Regular. Abdomen: Soft, nontender. Extremity: No edema. Neuro: Alert. No focality. Laboratory Data: WBC 5.2, H and H 9.3/27. Sodium 139, potassium 4.1, bicarb 27, BUN 15, creatinine 0.8, calcium 8.4, magnesium 1.9. CK 627. Current Medications: The patient on include; 1.Heparin. 2.Amlodipine. 3.Cardura 4 mg. 4.Metoprolol. 5.Spironolactone 25. 6.Magnesium oxide. 7.KCl. Assessment And Plan: 1.Acute kidney injury multifactorial secondary to rhabdomyolysis/prerenal, recovered, resolved. We will continue to monitor the patient. 2.Hypokalemia, status post supplement, resolved. 3.Hypomagnesemia. We will supplement and we will follow up. 4.Rhabdomyolysis. CK trended nicely, kidney function normalized. We will monitor. 5.Hypertension, controlled, better. I am going to go ahead and monitor the patient. The patient is going to be a good candidate for ARB/REGGIE inhibitor as outpatient. 6.Deconditioning as by primary. BRENDA/FABIAN Voice ID: [id number] Report ID: [id number]
--- NOTE | 2021-02-19 12:19 | P.DS ---
Admission Date: 02/14/21 Discharge Date: 02/19/21 Primary Care Provider: Dr. Foss Disposition: TRANSFER TO [facility] Discharge Condition: FAIR Reason for Admission: Acute renal failure Brief History of Present Illness: 89-year-old woman with a history of hypertension and hyperlipidemia presented to the emergency department due to weakness. Patient is reported to have fallen at home. She stated she could not get up and walk. Her son he eventually found her and called EMS and was subsequently brought to the ED. Patient reported diarrhea. Patient was orthostatic in the ED and was given IV fluid. Blood work revealed acute renal failure and elevated CK. Troponin negative. Chest x-ray unremarkable. Patient admitted for further management. Hospital Course: Discharge diagnosis Fall / Syncopal episode, secondary to orthostasis Acute renal failure, prerenal - secondary to dehydration rhabdomyolysis, improved Diarrhea, resolved Hypertension, hyperlipidemia -symptoms consistent with syncopal episode, patient was orthostatic in the ED -GIDEON resolved with IVF -family report patient hasn't been drinking much water lately, +diarrhea as well prior to admit -pt with rhabdo, CPK trended down significantly. -lisinopril was held during the hospital stay. -urine with bacteruria but +squams, pt denies any urinary changes/complaints, afebrile, urine culture yielded mixed darling, no antibiotic. -patient seen by PT for generalized weakness. She has now ambulating with a walker. -she has been accepted for skilled rehab. -she is clinically stable for discharge. Vital Signs/Physical Exam: Temp Pulse Resp BP Pulse Ox 98.8 F 87 18 149/65 H 96 02/19/21 08:00 02/19/21 10:19 02/19/21 08:00 02/19/21 10:19 02/19/21 08:00 General: Alert, In no apparent distress, Oriented x3 Neck: Supple, JVD not distended Respiratory: Clear to auscultation bilaterally, Normal air movement Cardiovascular: No edema, Regular rate/rhythm, Normal S1 S2 Capillary refill: <2 Seconds Gastrointestinal: Normal bowel sounds, Soft and benign, Non-distended, No tenderness Musculoskeletal: No swelling, No tenderness Integumentary: No rashes, No erythema Neurological: Normal speech, Normal strength at 5/5 x4 extr, Cranial nerves 3-12 intact Laboratory Data at Discharge: WBC 5.20 K/uL (4.3-10.9) 02/18/21 05:37 Hgb 9.3 g/dL (12.0-15.0) L 02/18/21 05:37 Hct 27.0 % (36.0-45.0) L 02/18/21 05:37 Plt Count 154 K/uL (152-406) 02/18/21 05:37 PT 14.3 SECONDS (9.5-12.5) H 02/13/21 23:30 INR 1.24 02/13/21 23:30 Sodium 139 mmol/L (136-145) 02/19/21 06:36 Potassium 4.1 mmol/L (3.5-5.1) 02/19/21 06:36 BUN 15 mg/dL (7-18) 02/19/21 06:36 Creatinine 0.89 mg/dL (0.55-1.3) 02/19/21 06:36 Glucose 94 mg/dL (74-106) 02/19/21 06:36 Uric Acid 5.4 mg/dL (2.6-6.0) 02/14/21 05:27 Magnesium 1.9 mg/dL (1.8-2.4) 02/19/21 06:36 Total Bilirubin 0.5 mg/dL (0.2-1.0) 02/15/21 06:15 AST 99 U/L (15-37) H 02/15/21 06:15 ALT 63 U/L (12-78) 02/15/21 06:15 Alkaline Phosphatase 51 U/L (45-117) 02/15/21 06:15 Troponin I 0.06 ng/mL (0.0-0.045) H 02/14/21 11:26 Triglycerides 56 mg/dL (<150) 02/14/21 05:27 Cholesterol 130 mg/dL (<200) 02/14/21 05:27 HDL Cholesterol 62 mg/dL (40-60) H 02/14/21 05:27 Cholesterol/HDL Ratio 2.10 02/14/21 05:27 Home Medications: Amlodipine [Norvasc*] 10 mg PO DAILY 02/14/21 Atorvastatin Calcium [Lipitor*] 10 mg PO BEDTIME 02/14/21 Doxazosin [Cardura*] 4 mg PO BEDTIME 02/14/21 Gabapentin 300 mg PO BID 02/14/21 Lisinopril [Zestril] 40 mg PO DAILY 02/14/21 Metoprolol Succinate 50 mg PO DAILY 02/14/21 OXcarbazepine [Trileptal] 300 mg PO BID 02/14/21 Omeprazole 20 mg PO DAILY 02/14/21 Spironolactone [Aldactone*] 25 mg PO DAILY 02/14/21 Diet: ADA Activity: Fall precautions Followup: NONE,NONE [Primary Care Provider] - Time spent managing pt's care (in minutes): 36
[2021-02-19 14:34] VITALS: BP 113/51; TEMP 98.9
== END 2021-02-19 16:45 | DRG 683 ==
LOC: ER 21:17 → ERHOLD 02-14 00:41 → 2ND 02-14 03:58
PROVIDERS: ADMIT Hospitalist; ATTEND Hospitalist
DX: N17.0 Acute kidney failure with tubular necrosis (principal); M62.82 Rhabdomyolysis; R55 Syncope and collapse; E86.0 Dehydration; K52.9 Noninfective gastroenteritis and colitis, unspecified; I10 Essential (primary) hypertension; E78.5 Hyperlipidemia, unspecified; R53.1 Weakness; E87.6 Hypokalemia; E83.42 Hypomagnesemia; Z20.822 Contact with and (suspected) exposure to COVID-19
CPT/HCPCS: 36415; 70450; 71045; 74176; 76770; 80048; 80053; 80061; 80076; 81003; 81015; 82550; 82570; 83735; 83880; 83935; 83970; 84156; 84300; 84439; 84443; 84484; 84550; 85025; 85610; 87086; 87088; 93005; 96360; 96361; 97116; 97162; 97530; 99285; J0360; J1644; J3475; J7030; U0003

== ENCOUNTER 2022-04-19 21:53 | Observation (INO) | payer OTHER ==
[2022-04-19 23:49] LABS: Hematocrit 32.1 % (36.0-45.0); Lymphocytes % 20.1 % (15.3-44.8); MCV 95.3 fL (80-100); MPV 6.6 fL (7.6-11.3); Protime INR 1.17; RBC Red Blood Cell Count 3.37 M/uL (3.86-4.86)
[2022-04-19 23:56] LABS: Albumin 3.3 g/dL (3.4-5.0); Bilirubin Direct 0.2 mg/dL (0-0.2); Bilirubin Total 0.4 mg/dL (0.2-1.0); Potassium 4.3 mmol/L (3.5-5.1); Protein, Total 6.9 g/dL (6.4-8.2)
[2022-04-20] LABS: Troponin High Sensitivity 62.2 pg/mL (<58.9)
[2022-04-20 00:37] LABS: Urine Blood Negative (Negative); Urine Glucose Negative (Negative); Urine Protein Negative (Negative); Urine Specific Gravity 1.015 (1.005-1.030)
[2022-04-20 01:17] LABS: SARS-CoV-2 Antigen Rapid Res Negative (Negative)
--- NOTE | 2022-04-20 01:17 | ER ---
Nurse's Notes [facility] Name: Pamela Alvarez Age: 89 yrs Sex: Female : 1930 Arrival Date: 04/19/2022 Time: 21:59 Bed 4 Private MD: Diagnosis: Falls, multiple;Acute systolic (congestive) heart failure Presentation: 04/19 22:10 Chief complaint: EMS states: pt was seen at [place] today for repeated falls, pt had as6 negative head CT from [place] and was discharged, pt called EMS this evening because she states when she stands she feels nervous. Coronavirus screen: At this time, the client does not indicate any symptoms associated with coronavirus-19. Ebola Screen: No symptoms or risks identified at this time. Initial Sepsis Screen: Does the patient meet any 2 criteria? No. Patient's initial sepsis screen is negative. Does the patient have a suspected source of infection? No. Patient's initial sepsis screen is negative. Risk Assessment: Do you want to hurt yourself or someone else? Patient reports no desire to harm self or others. Onset of symptoms was April 19, 2022. 22:10 Method Of Arrival: EMS: [facility] as6 22:10 Acuity: SARA 3 as6 Historical: - Allergies: 22:14 Sulfa (Sulfonamide Antibiotics); as6 - Home Meds: 22:14 lisinopril 40 mg Oral soln 1 tab once daily [Active]; doxazosin 4 mg oral tab 1 tab as6 once daily [Active]; gabapentin 300 mg oral cap 1 cap twice a day [Active]; oxcarbazepine 300 mg oral tab 1 tab 2 times per day [Active]; metoprolol tartrate 50 mg Oral soln 1 tab once daily [Active]; spironolactone 25 mg Oral tab 1 tab once daily [Active]; omeprazole 20 mg Oral cpDR 1 cap once daily [Active]; - PMHx: 22:14 Arthritis; Chronic pain; GERD; High Cholesterol; Hypertension; as6 - Immunization history:: Client reports receiving the 2nd dose of the Covid vaccine, [employer]. - Social history:: Smoking status: Patient denies any tobacco usage or history of. Screenin:17 Abuse screen: Denies threats or abuse. Denies injuries from another. Nutritional as6 screening: No deficits noted. Tuberculosis screening: No symptoms or risk factors identified. Fall Risk Fall in past 12 months (25 points). Total Mohan Fall Scale indicates Low Risk Score (25-44 pts). Fall prevention measures have been instituted. Side Rails Up X 2 Family Present and informed to notify staff if they need to leave bedside. Assessment: 22:17 General: Appears in no apparent distress. Behavior is cooperative, anxious. Pain: as6 Denies pain. Neuro: Level of Consciousness is awake, alert. Respiratory: Respiratory effort is even, unlabored. Vital Signs: 22:10 BP 183 / 103; Pulse 96; Resp 13 S; Temp 99.0(O); Pulse Ox 95% on R/A; Weight 72.57 kg as6 (R); Height 5 ft. 7 in. (170.18 cm) (R); Pain 0/10; 04/20 00:25 BP 220 / 92 Supine; Pulse 95; aa9 00:28 BP 200 / 102 Sitting; Pulse 101; aa9 00:31 BP 184 / 83 Standing; Pulse 100; aa9 21:26 BP 184 / 78; Pulse 80; Resp 18; Temp 98.0(TE); Pulse Ox 98% on R/A; Pain 0/10; bm7 04/19 22:10 Body Mass Index 25.06 (72.57 kg, 170.18 cm) as6 ED Course: 04/19 21:59 Patient arrived in ED. wm 22:10 Luis Angel Bethea, RN is Primary Nurse. as6 22:14 Triage completed. as6 22:17 Arm band placed on. as6 22:17 Bed in low position. Call light in reach. Side rails up X2. Adult w/ patient. Client as6 placed on continuous cardiac and pulse oximetry monitoring. NIBP monitoring applied. 22:23 Sherif Zarco MD is Attending Physician. mh7 23:13 XRAY Chest (1 view) In Process Unspecified. EDMS 23:42 Pelvis XRAY In Process Unspecified. EDMS 04/20 00:43 CT Head C Spine In Process Unspecified. EDMS 00:43 CT Chest Wo Con In Process Unspecified. EDMS 01:16 Mak Roy is Hospitalizing Provider. 7 02:13 Assisted with bedpan. Cleaned of incontinence. Linen changed. aa9 21:26 No provider procedures requiring assistance completed. Patient admitted, IV remains in [address] place[address] Administered Medications: 01:42 Drug: Lasix (furosemide) 20 mg Route: IVP; Site: right antecubital; aa9 03:29 Follow up: Response: No adverse reaction aa9 Medication: 21:26 VIS not applicable for this client. [facility] Outcome: 01:17 Decision to Hospitalize by Provider. [facility] :26 Admitted to Med/surg accompanied by tech, via stretcher, with chart, Report called to Louise Calloway RN : Condition: improved : Discharge instructions given to patient, Instructed on the need for transfer, Demonstrated understanding of : Patient left the ED. mw2 Signatures: Dispatcher [employer] EDKY Sonja Elizabeth mw2 Sherif Zarco MD MD 7 Precious Cabrera, RN RN 7 Chanel Wilson Ashby, RN RN as6 Lydia Cody, RN RN aa9
--- NOTE | 2022-04-20 01:18 | EDPHYS ---
Physician Documentation [facility] Name: Pamela Alvarez Age: 89 yrs Sex: Female : 1930 Arrival Date: 04/19/2022 Time: 21:59 Bed 4 Private MD: ED Physician Sherif Zarco HPI: 04/19 23:17 This 89 yrs old Black Female presents to ER via EMS with complaints of Fall Injury. mh7 23:17 Details of fall: The patient fell from an upright position, while walking. Onset: The mh7 symptoms/episode began/occurred yesterday. Associated injuries: The patient sustained no obvious injury. Severity of symptoms: At their worst the symptoms were moderate, earlier today, in the emergency department the symptoms have improved, moderately. States she has had three falls in the past two days. Yesterday she hit her head and was seen at a free standing ER. Today she had two falls at home. States that she feels tremulous prior to falling. Denies any head trauma or LOC today but was unable to get off of floor by herself.. Historical: - Allergies: 22:14 Sulfa (Sulfonamide Antibiotics); as6 - Home Meds: 22:14 lisinopril 40 mg Oral soln 1 tab once daily [Active]; doxazosin 4 mg oral tab 1 tab as6 once daily [Active]; gabapentin 300 mg oral cap 1 cap twice a day [Active]; oxcarbazepine 300 mg oral tab 1 tab 2 times per day [Active]; metoprolol tartrate 50 mg Oral soln 1 tab once daily [Active]; spironolactone 25 mg Oral tab 1 tab once daily [Active]; omeprazole 20 mg Oral cpDR 1 cap once daily [Active]; - PMHx: 22:14 Arthritis; Chronic pain; GERD; High Cholesterol; Hypertension; as6 - Immunization history:: Client reports receiving the 2nd dose of the Covid vaccine, [employer]. - Social history:: Smoking status: Patient denies any tobacco usage or history of. ROS: 23:17 Constitutional: Negative for fever, chills, and weight loss, Eyes: Negative for injury, mh7 pain, redness, and discharge, ENT: Negative for injury, pain, and discharge, Neck: Negative for injury, pain, and swelling, Cardiovascular: Negative for chest pain, palpitations, and edema, Respiratory: Negative for shortness of breath, cough, wheezing, and pleuritic chest pain, Abdomen/GI: Negative for abdominal pain, nausea, vomiting, diarrhea, and constipation, Back: Negative for injury and pain, : Negative for injury, bleeding, discharge, and swelling, MS/Extremity: Negative for injury and deformity, Skin: Negative for injury, rash, and discoloration, Neuro: Negative for headache, weakness, numbness, tingling, and seizure, Psych: Negative for depression, anxiety, suicide ideation, homicidal ideation, and hallucinations, Allergy/Immunology: Negative for hives, rash, and allergies, Endocrine: Negative for neck swelling, polydipsia, polyuria, polyphagia, and marked weight changes, Hematologic/Lymphatic: Negative for swollen nodes, abnormal bleeding, and unusual bruising. Exam: 23:17 Constitutional: This is a well developed, well nourished patient who is awake, alert, mh7 and in no acute distress. Head/Face: Normocephalic, atraumatic. Eyes: Pupils equal round and reactive to light, extra-ocular motions intact. Lids and lashes normal. Conjunctiva and sclera are non-icteric and not injected. Cornea within normal limits. Periorbital areas with no swelling, redness, or edema. ENT: Nares patent. No nasal discharge, no septal abnormalities noted. Tympanic membranes are normal and external auditory canals are clear. Oropharynx with no redness, swelling, or masses, exudates, or evidence of obstruction, uvula midline. Mucous membranes moist. Neck: Trachea midline, no thyromegaly or masses palpated, and no cervical lymphadenopathy. Supple, full range of motion without nuchal rigidity, or vertebral point tenderness. No Meningismus. Chest/axilla: Normal chest wall appearance and motion. Nontender with no deformity. No lesions are appreciated. Cardiovascular: Regular rate and rhythm with a normal S1 and S2. No gallops, murmurs, or rubs. Normal PMI, no JVD. No pulse deficits. Respiratory: Lungs have equal breath sounds bilaterally, clear to auscultation and percussion. No rales, rhonchi or wheezes noted. No increased work of breathing, no retractions or nasal flaring. Abdomen/GI: Soft, non-tender, with normal bowel sounds. No distension or tympany. No guarding or rebound. No evidence of tenderness throughout. Back: No spinal tenderness. No costovertebral tenderness. Full range of motion. Skin: Warm, dry with normal turgor. Normal color with no rashes, no lesions, and no evidence of cellulitis. MS/ Extremity: Pulses equal, no cyanosis. Neurovascular intact. Full, normal range of motion. Psych: Awake, alert, with orientation to person, place and time. Behavior, mood, and affect are within normal limits. 23:17 Neuro: Orientation: is normal, Mentation: is normal, Memory: is normal, Cranial nerves: grossly normal, Cerebellar function: is grossly normal, Motor: is normal, Sensation: is normal, Gait: not tested. seizure activity, is not displayed by the patient, Abnormal movements: there are no abnormal movements. Vital Signs: 22:10 BP 183 / 103; Pulse 96; Resp 13 S; Temp 99.0(O); Pulse Ox 95% on R/A; Weight 72.57 kg as6 (R); Height 5 ft. 7 in. (170.18 cm) (R); Pain 0/10; 04/20 00:25 BP 220 / 92 Supine; Pulse 95; aa9 00:28 BP 200 / 102 Sitting; Pulse 101; aa9 00:31 BP 184 / 83 Standing; Pulse 100; aa9 21:26 BP 184 / 78; Pulse 80; Resp 18; Temp 98.0(TE); Pulse Ox 98% on R/A; Pain 0/10; bm7 14 22:10 Body Mass Index 25.06 (72.57 kg, 170.18 cm) as6 MDM: 01:15 Differential diagnosis: closed head injury, contusion, fracture. Data reviewed: vital 7 signs, nurses notes, EMS record, old medical records, lab test result(s), cardiac enzymes, CBC, electrolytes, EKG, radiologic studies, CT scan, plain films. Data interpreted: Pulse oximetry: on room air is 95 %. Interpretation: normal. Counseling: I had a detailed discussion with the patient and/or guardian regarding: the historical points, exam findings, and any diagnostic results supporting the discharge/admit diagnosis, the presence of at least one elevated blood pressure reading (>120/80) during this emergency department visit, lab results, radiology results, the need for further work-up and treatment in the hospital. Response to treatment: the patient's symptoms have mildly improved after treatment. 01:17 [facility] medically screened. [facility] 04/19 22:52 Order name: Basic Metabolic Panel; Complete Time: 00:01 [facility] 04/19 22:52 Order name: CBC with Diff; Complete Time: 23:58 [facility] 04/19 22:52 Order name: LFT's; Complete Time: 00:01 [facility] 04/19 22:52 Order name: Magnesium; Complete Time: 00:01 [facility] 04/19 22:52 Order name: NT PRO-BNP; Complete Time: 00:01 [facility] 04/19 22:52 Order name: PT-INR; Complete Time: 23:58 [facility] 04/19 22:52 Order name: Troponin HS; Complete Time: 00:01 [facility] 04/19 23:27 Order name: Creatine Phosphokinase; Complete Time: 00:01 [facility] 04/19 23:41 Order name: SARS RAPID; Complete Time: 01:17 [facility] 04/20 00:37 Order name: Urine Dipstick-Ancillary; Complete Time: 01:17 [facility] 04/20 01:18 Order name: Urine Microscopic Only [facility] 04/20 01:18 Order name: Urine Culture [facility] 04/20 05:54 Order name: Troponin High Sensitivity [facility] 04/19 22:52 Order name: XRAY Chest (1 view) [facility] 04/19 22:52 Order name: EKG; Complete Time: 22:56 [facility] 04/19 22:52 Order name: Cardiac monitoring; Complete Time: 22:53 [facility] 04/19 22:52 Order name: EKG - Nurse/Tech; Complete Time: 23:22 [facility] 04/19 22:52 Order name: IV Saline Lock; Complete Time: 22:53 [facility] 04/19 22:52 Order name: Labs collected and sent; Complete Time: 00:24 [facility] 04/19 22:52 Order name: O2 Per Protocol; Complete Time: 22:53 [facility] 04/19 22:52 Order name: O2 Sat Monitoring; Complete Time: 22:53 [facility] 04/19 22:52 Order name: Urine Dipstick-Ancillary (obtain specimen); Complete Time: 00:38 [facility] 04/19 22:53 Order name: Orthostatics; Complete Time: 00:38 7 04/19 22:54 Order name: CT Head C Spine 7 04/19 23:21 Order name: Pelvis XRAY [facility] 04/20 00:01 Order name: CT Chest Wo Con 7 04/20 05:54 Order name: Lipid Profile [facility] 04/20 13:21 Order name: Troponin High Sensitivity [facility] Administered Medications: 01:42 Drug: Lasix (furosemide) 20 mg Route: IVP; Site: right antecubital; aa9 03:29 Follow up: Response: No adverse reaction aa9 Disposition Summary: 04/20/22 01:17 Hospitalization Ordered Hospitalization Status: Inpatient Admission [facility] Provider: Mak Roy Condition: Stable [facility] Problem: new [facility] Symptoms: have improved [facility] Bed/Room Type: Standard [facility] Location: Telemetry/MedSurg (Inpatient)(04/20/22 20:11) Room Assignment: [facility](04/20/22 20:11) Diagnosis - Falls, multiple [facility] - Acute systolic (congestive) heart failure [facility] Forms: - Medication Reconciliation Form [facility] - SBAR form [facility] Signatures: Dispatcher [employer] [facility] Taylor Feliz RN RN mw Sherif Zarco MD MD 7 Luis Angel Bethea RN RN as6 Lydia Cody RN RN aa9 Corrections: (The following items were deleted from the chart) 04/19 23:27 22:56 CREATINE PHOSPHOKINASE+C.LAB.BRZ ordered. [facility] 04/20 01:39 01:17 Telemetry/MedSurg (Inpatient) [facility] mw 01:39 01:17 7 mw 20:11 01:39 [facility] ER HOLD mw mw 20:11 01:39 ERHOLD- mw mw
[2022-04-20] MEDS ORDERED: FUROSEMIDE 40 MG/4 ML VIAL ONE (01:36)
--- NOTE | 2022-04-20 02:13 | P.HP ---
Certification for Inpatient Patient admitted to: Observation With expected LOS: <2 Midnights Patient will require the following post-hospital care: None Practitioner: I am a practitioner with admitting privileges, knowledge of patient current condition, hospital course, and medical plan of care. Services: Services provided to patient in accordance with Admission requirements found in Title 42 Section 412.3 of the Code of Federal Regulations Patient History Date of Service: 04/20/22 Reason for admission: Falls, elevated troponin History of Present Illness: 89-year-old female with history of GERD, hypertension, hyperlipidemia, arthritis presents the emergency department for multiple falls, weakness. She reports she had 2 falls today, 1 yesterday she is unsure why she falls she feels like her legs are giving out on her she denies syncope, chest pain, dizziness, headaches or shortness of breath. She was evaluated in the emergency department her labs were significant for hemoglobin 10.8 hematocrit 32.1 GFR 44 CPK 258 high- sensitivity troponin 62.[address] of the head/C-spine was negative for acute findings, pelvic x-ray without any fractures EKG without ST elevations, patient denies any chest pain at this time reports she started to feel weak when she stands up ED provider wishes to admit under observation. Allergies No Known Allergies Allergy (Unverified 02/14/21 04:21) Home Medications: Amlodipine [Norvasc*] 10 mg PO DAILY 02/14/21 Atorvastatin Calcium [Lipitor*] 10 mg PO BEDTIME 02/14/21 Doxazosin [Cardura*] 4 mg PO BEDTIME 02/14/21 Gabapentin 300 mg PO BID 02/14/21 Lisinopril [Zestril] 40 mg PO DAILY 02/14/21 Metoprolol Succinate 50 mg PO DAILY 02/14/21 OXcarbazepine [Trileptal] 300 mg PO BID 02/14/21 Omeprazole 20 mg PO DAILY 02/14/21 Spironolactone [Aldactone*] 25 mg PO DAILY 02/14/21 - Past Medical/Surgical History Diabetic: No -: Hypertension -: Hyperlipidemia -: none Psychosocial/ Personal History: Patient lives alone and is retired - Family History Mother -: Stroke Sister -: Stroke - Social History Smoking Status: Never smoker Alcohol use: No CD- Drugs: No Caffeine use: No Place of Residence: Home Review of Systems 10-point ROS is otherwise unremarkable General: Weakness Neurological: Weakness Physical Examination - Physical Exam General: Alert, In no apparent distress, Oriented x3 HEENT: Atraumatic, PERRLA, Mucous membr. moist/pink, EOMI, Sclerae nonicteric Neck: Supple, 2+ carotid pulse no bruit, No LAD, Without JVD or thyroid abnormality Respiratory: Clear to auscultation bilaterally, Normal air movement Cardiovascular: Regular rate/rhythm, Normal S1 S2 Gastrointestinal: Normal bowel sounds, No tenderness Musculoskeletal: No tenderness Integumentary: No rashes Neurological: Normal gait, Normal speech, Normal strength at 5/5 x4 extr, Normal tone, Normal affect Lymphatics: No axilla or inguinal lymphadenopathy - Studies Laboratory Data (last 24 hrs) 04/19/22 23:31: PT 12.9 H, INR 1.17 04/19/22 23:31: WBC 5.1, Hgb 10.8 L, Hct 32.1 L, Plt Count 200 04/19/22 23:19: Sodium 139, Potassium 4.3, BUN 22 H, Creatinine 1.19, Glucose 109 H, Magnesium 2.0, Total Bilirubin 0.4, AST 13 L, ALT 18, Alkaline Phosphatase 82 Assessment and Plan - Plan Assessment: Frequent falls/increased risk for falls Elevated troponin Hypertension Hyperlipidemia GERD Plan: Frequent falls/increased risk for falls: She has had 3 falls in the last couple of days, lives at home alone feels like her legs are giving out on her. We will have patient evaluate physical therapy she does have and use a walker at home. Patient has required physical therapy in the past she may benefit with home PT. Appreciate further input from physical therapy. Elevated troponin: Borderline elevated high-sensitivity troponin will trend troponin level if significantly elevated will consult cardiology add echocardiogram. Hypertension: Continue home medications Hyperlipidemia:Continue home medications GERD:Continue home medications DVT PPX: Lovenox Code status: Full Discharge Plan: Home Plan to discharge in: 24 Hours - Advance Directives Does patient have a Living Will: No Does patient have a Durable POA for Healthcare: No - Code Status/Comfort Care Code Status Assessed: Yes (Full code) Critical Care: No Time Spent Managing Pts Care (In Minutes): 70
[2022-04-20] MEDS ORDERED: ONDANSETRON 4 MG/2 ML VIAL IV PRN (02:35)
[2022-04-20 02:43] LABS: Urine Bacteria <20 /HPF (<20); Urine RBC <5 /HPF (None Seen)
[2022-04-20 05:54] LABS: Troponin High Sensitivity 70.8 pg/mL (<58.9)
[2022-04-20] MEDS: PANTOPRAZOLE 40MG TABLET PO SCH (06:30)
[2022-04-20] MEDS ORDERED: PNEUMOCOCCAL VACCINE 0.5 ML IMVAC ONE (08:00)
[2022-04-20] MEDS: ASPIRIN EC 81 MG TAB PO SCH (09:00)
[2022-04-20] MEDS: ENOXAPARIN 40 MG/0.4 ML SQ SCH (09:00)
[2022-04-20] MEDS ORDERED: ASPIRIN 81 MG CHEWABLE TABLET ONE (09:29)
[2022-04-20] MEDS ORDERED: ENOXAPARIN 40 MG/0.4 ML SQ ONE (09:29)
[2022-04-20] MEDS ORDERED: PANTOPRAZOLE 40MG TABLET PO ONE (09:38)
--- NOTE | 2022-04-20 10:31 | RAD REPORT ---
EXAM DESCRIPTION: Pelvis CLINICAL HISTORY: 89 years Female TRAUMA COMPARISON: None TECHNIQUE: AP view of the pelvis was obtained. FINDINGS: No definite fractures seen. Limited evaluation femoral necks bilaterally related to patien t positioning. Satisfactory articulation femoral heads with acetabular regions bilaterally. Pelvic calcifications likely vascular in nature. Marked degenerative changes lower lumbar spine. Righ t gluteal calcifications. IMPRESSION: No definite fracture or dislocation seen. Limited evaluation femoral necks bilaterally r elated to patient positioning. Electronically signed by: Supriya Burrell MD 04/19/2022 11:57 PM CDT Due to temporary technical issues with the PACS/Fluency reporting system, reports are being signed by the in house radiologists without review as a courtesy to insure prompt reporting. The interpreting radiologist is fully responsible for the content of the report.
--- NOTE | 2022-04-20 13:48 | RAD REPORT ---
EXAM DESCRIPTION: Chest Single View CLINICAL HISTORY: Fall COMPARISON: None. FINDINGS: Single frontal radiograph view of the chest. Cardiomediastinal silhouette: Atherosclerotic calcification of thoracic aorta. Cardiomegaly. Leads ov erlie the chest. Lungs: Low lung volumes. Bilateral interstitial opacities. No pneumothorax or large effusion. Bones: Degenerative change of the spine and shoulders. Upper abdomen: No abnormality identified. IMPRESSION: 1. Mild bilateral interstitial opacities. Findings may related to pulmonary edema. Alter natively, interstitial pneumonic process could also produce this appearance. 2. Cardiomegaly. Electronically signed by: Spencer Thorpe 04/19/2022 11:39 PM CDT Due to temporary technical issues with the PACS/Fluency reporting system, reports are being signed by the in house radiologists without review as a courtesy to insure prompt reporting. The interpreting radiologist is fully responsible for the content of the report.
--- NOTE | 2022-04-20 13:53 | RAD REPORT ---
EXAM DESCRIPTION: CT Head and Cervical Spine Without Intravenous Contrast CLINICAL HISTORY: Trauma TECHNIQUE: Axial computed tomography images of the head/brain and cervical spine without intravenous contrast. Sagittal and coronal reformatted images were created and reviewed. This CT exam was pe rformed using one or more of the following dose reduction techniques: automated exposure control, a djustment of the mA and/or kV according to patient size, and/or use of iterative reconstruction techn ique. COMPARISON: Head CT dated 02/13/2021 FINDINGS: Brain: Mild to moderate cerebral atrophy. Mild bilateral periventricular and subcortic al white matter low-attenuation most compatible with chronic microvascular angiopathy without signifi cant interval change. Prominence of the extra-axial space in the frontal regions bilaterally withou t focal mass effect on the adjacent sulci, more pronounced on the current study. No hemorrhage. Ventricles: Unremarkable. No ventriculomegaly. Skull: No acute fracture. Sinuses: Unremarkable as visualized. No acute sinusitis. Mastoid air cells: Unremarkable as visualized. No mastoid effusion. Vertebrae: Minimal grade 1 retrolisthesis of C4 on C5 and grade 1 anterolisthesis of C7 on T1. No a cute fracture or subluxation. Discs/spinal canal/neural foramina: Moderate to severe multilevel degenerative changes most pronoun dev at the mid to lower cervical spine. The central thecal sac is moderately to severely compromised at C5-C6. Soft tissues: Unremarkable. Vasculature: There is atherosclerotic disease of the internal carotid arteries bilaterally. IMPRESSION: 1. No acute intracranial or extra-axial abnormality. 2. Prominence of the extra axial space in the frontal regions bilaterally, more pronounced on the c urrent study. Although there is no significant mass effect on the adjacent sulci, small chronic subdu ral hygromas may be considered. 3. No acute cervical spine injury. 4. Other findings as above. Electronically signed by: Angelique Cao MD 04/20/2022 12:54 AM CDT Due to temporary technical issues with the PACS/Fluency reporting system, reports are being signed by the in house radiologists without review as a courtesy to insure prompt reporting. The interpreting radiologist is fully responsible for the content of the report.
--- NOTE | 2022-04-20 14:01 | RAD REPORT ---
EXAM DESCRIPTION: Thorax Wo Con CLINICAL HISTORY: 89 years Female Chest trauma, blunt COMPARISON: AP view of the chest performed on April 19, 2022 TECHNIQUE: Images were obtained in axial, sagittal, and coronal planes. No intravenous contrast was administered. This exam was performed according to our departmental dose-optimization program which includes use of Automated Exposure Control, adjustment of the mA and/or kV according to patient size and/or use of i terative reconstruction technique. FINDINGS: No dilatation aortic root. Enlarged heart. No pericardial or pleural effusions bilaterally . Airspace attenuation lower lobes bilaterally consistent with atelectatic change versus contusion. No pneumothorax. No lung parenchymal nodules seen. Chronic changes lung apices bilaterally. No acute osseous abnormality. No rib fractures bilaterally. Costovertebral junctions are intact bilat erally. No sternal fracture. Height of the thoracic vertebral bodies is intact. Calcified granuloma involving this spleen. IMPRESSION: Atelectatic change versus infiltrate or contusion lower lobes bilaterally. Enlarged hear t. Otherwise no acute thoracic abnormality Electronically signed by: Supriya Burrell MD 04/20/2022 12:55 AM CDT Due to temporary technical issues with the PACS/Fluency reporting system, reports are being signed by the in house radiologists without review as a courtesy to insure prompt reporting. The interpreting radiologist is fully responsible for the content of the report.
--- NOTE | 2022-04-20 15:54 | P.PN ---
Date of Service: 04/20/22 Patient seen and examined. She was complaining of upper and lower extremity tremors while using her walker leading to the falls. Troponin is mildly elevated but trending flat with no acute elevation to suggest ACS. Blood pressure severely elevated during my examination in the ED. Diagnosis: Elevated troponin-type II secondary to demand ischemia. Accelerated hypertension. Falls Plan: Seen by PT. patient was able to ambulate 160 feet with a walker. Currently without any symptoms. Resume home antihypertensives. Hydralazine as needed for BP spikes. Continue PT. May need skilled rehab placement.
[2022-04-20 22:40] VITALS: BMI 23.4
[2022-04-20] MEDS: ATORVASTATIN 20 MG TAB PO SCH (22:52)
[2022-04-21] MEDS ORDERED: HYDRALAZINE HCL 20 MG/ML VIAL IV PRN (00:19)
[2022-04-21 05:56] LABS: Absolute Lymphocytes (CBC) 0.9 K/uL (0.7-4.9); Hematocrit 34.5 % (36.0-45.0); Lymphocytes % 17.8 % (15.3-44.8); MPV 6.9 fL (7.6-11.3); RBC Red Blood Cell Count 3.63 M/uL (3.86-4.86)
--- NOTE | 2022-04-21 05:59 | P.PN ---
Date of Service: 04/21/22 Subjective: no acute events overnight states she feels better, no near-syncopal events worked with PT yesterday at home with several episodes of tremulousness followed by near syncope/falling ROS: 10 point ROS as noted above, otherwise negative Physical exam GEN: Alert, oriented, NAD HEENT: Normal conjunctiva, sclera anicteric CV: Regular rate and rhythm, no edema Pulm: Non-labored respirations on room air ABD: Soft, nontender, nondistended Integumentary: No rashes Neuro: Normal speech, normal affect Problem List Frequent falls/increased risk for falls Orthostasis new tremors in b/l upper extremities NSTEMI Hypertension Hyperlipidemia GERD 3-4 falls in last few days associated with standing up, having bilateral upper extremity tremors, then falling. one episode occurred after climbing a flight of stairs denies tremor at rest concerned for orthostasis; possible cardiac / vascular issue leading to decreased perfusion temporarily +orthostatic vitals yesterday with PT and on prior hospitalization MRI/MRA ordered neurology consulted echo ordered, has systolic murmur on exam - eval aortic valve lives alone, high fall risk likely needs SNF on discharge PT consulted elevated troponin possibly from falls vs ischemia; cardiology consulted; echo as above if no wall motion abnormality, likely further eval as outpatient resumed home anti-hypertensives, adjust as needed; avoid hypotension Code: full Dispo: likely SNF, ~2 days Time Spent Managing Pts Care (In Minutes): 35
[2022-04-21 06:15] LABS: Potassium 3.8 mmol/L (3.5-5.1)
[2022-04-21 06:16] LABS: Albumin 3.1 g/dL (3.4-5.0); Bilirubin Total 0.6 mg/dL (0.2-1.0); Protein, Total 6.9 g/dL (6.4-8.2)
[2022-04-21] MEDS: PANTOPRAZOLE 40MG TABLET PO SCH (06:34)
[2022-04-21] MEDS: ACETAMINOPHEN 500 MG TAB PO PRN ×2 (06:36→21:54)
--- NOTE | 2022-04-21 08:17 | EKG ---
Test Date: 2022-04-19 Test Time: 23:12:52 Internal Security Manager: DAVID MEASUREMENT RESULTS: Intervals: Rate: 91 AR: 166 QRSD: 80 QT: 366 QTc: 450 [place]: P: 78 AR: 166 QRS: 26 T: -63 INTERPRETIVE STATEMENTS: Normal sinus rhythm Biatrial enlargement ST & T wave abnormality, consider lateral ischemia Abnormal ECG Compared to ECG 02/13/2021 23:33:49 Possible ischemia now present ST (T wave) deviation still present Electronically Signed On 04-21-22 08:11:34 CDT by Liam Mixon
[2022-04-21] MEDS: METOPROLOL XL 50 MG TAB PO SCH (08:42)
[2022-04-21] MEDS: ENOXAPARIN 40 MG/0.4 ML SQ SCH (08:42)
[2022-04-21] MEDS: SPIRONOLACTONE 25 MG TABLET PO SCH (08:42)
[2022-04-21] MEDS: GABAPENTIN 300 MG CAP PO SCH ×2 (08:42→20:37)
[2022-04-21] MEDS: OXcarbazepine 150 MG TAB PO SCH ×2 (08:42→20:37)
[2022-04-21] MEDS: lisinopriL 20 MG TAB PO SCH (08:42)
[2022-04-21] MEDS: ASPIRIN EC 81 MG TAB PO SCH (08:42)
[2022-04-21] MEDS ORDERED: POTASSIUM CL SA 10 MEQ TAB PO ONE (09:00)
[2022-04-21] MEDS ORDERED: HOME MED 1 EA UNK (Omeprazole [Omeprazole] 20 MG Capsule.Dr) PO SCH (09:00)
--- NOTE | 2022-04-21 15:15 | CON ---
Date of Consultation: 04/21/2022 Reason For Consultation: Elevated troponin. History Of Present Illness: An 89-year-old female with a past medical history of hypertension, dysli pidemia, acid reflux, chronic osteoarthritis, presented with multiple falls, feeling unsteady apparen tly. Denies having any chest pain, but she had been having near syncopal episodes. Troponin was bor derline elevated. Denies having any chest pain, shortness of breath. Past Medical History: As outlined above in the HPI. Medications: Refer to reconciliation sheet for detailed list. Allergies: SULFA. Family History: No premature coronary artery disease or cancer. Social History: Does not smoke or drink. Does not use any drugs. Review of Systems: All systems reviewed and they were negative except what mentioned in the HPI. Physical Examination: Vital Signs: Temperature is 98.1, pulse 85, breathing at 16, blood pressure is 127/68, saturating 97 % on room air. General: Pleasant elderly female, in no apparent distress. Head and Neck: Pupils are equal, reactive to light. Intact eye movements. No JVD. No cervical lym phadenopathy. Neck is supple. Thyroid is not enlarged. Lungs: Clear to auscultation bilaterally. No rhonchi, wheezing, or crackles. No accessory muscle u se. Heart: Regular rate and rhythm with aortic systolic murmur. Abdomen: Soft, nontender. Bowel sounds positive. No organomegaly. No masses or hernia. No rigidi ty or rebound. Extremities: No clubbing or cyanosis. Intact pulses. Skin: No rash. Neurologic: Alert, awake, oriented x3. No acute focal deficits appreciated. Investigations: Troponin 62, then peaked at 73. Creatinine 0.94, hemoglobin 11.6, white blood cell count is 5.3. Assessment And Recommendations: 1.Elevated troponin. No chest pain. Please obtain echocardiogram. This is likely demand. Further recommendation will follow based on the echo. Agree with aspirin and metoprolol. 2.Hypertension. Blood pressure is controlled. 3.Dyslipidemia. Continue statin. 4.Near syncope. Please obtain echocardiogram to evaluate the aortic valve. SR/MODL Voice ID: [id number] Report ID: [id number]
--- NOTE | 2022-04-21 17:58 | RAD REPORT ---
EXAM DESCRIPTION: MRI - Brain W/Wo Cont - 04/21/2022 5:27 pm CLINICAL HISTORY: Syncope COMPARISON: head CT April 20, 2022 TECHNIQUE: Axial, sagittal, and coronal magnetic images of the brain were obtained. Fifteen cc Multi Ervin administered intravenously FINDINGS: Mild signal within periventricular, deep and subcortical white matter probably ischemic c hanges secondary to small vessel disease The ventricles are normal in caliber. Diffusion-weighted/ ADC mapping sequences do not demonstrate evidence of an acute infarction. Small to moderate subdural effusions are present along frontal, parietal and temporal convexities. Th ey have low signal on T1 and high signal on T2 weighted sequences. 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 These can be seen with intracranial hypotension
--- NOTE | 2022-04-21 18:14 | RAD REPORT ---
EXAM DESCRIPTION: MRI - MRA Neck W/Wo Cont - 04/21/2022 5:27 pm CLINICAL HISTORY: Syncope COMPARISON: None. TECHNIQUE: Magnetic resonance angiogram of the neck was performed. 19 cc MultiHance was administered intravenously. 3D MIPS reconstruction performed FINDINGS: Mild plaque within common carotid, internal carotid and external carotid arteries. The vertebral arteries are codominant. Mild plaque is present. No dissection is seen IMPRESSION: Mild plaque within carotid and vertebral arteries NASCET criteria used. Mild 0-49% stenosis Moderate 50-69% stenosis Severe 70-99% stenosis
--- NOTE | 2022-04-21 18:16 | RAD REPORT ---
EXAM DESCRIPTION: MRI - MRA Head Wo Cont - 04/21/2022 5:27 pm CLINICAL HISTORY: Syncope COMPARISON: None. TECHNIQUE: Magnetic resonance angiogram was performed. 3D MIPS reconstruction performed FINDINGS: The anterior cerebral, middle cerebral, posterior cerebral, distal internal carotid and ba silar arteries do not demonstrate a significant stenosis. An aneurysm is not displayed. IMPRESSION: No acute abnormality is displayed
--- NOTE | 2022-04-21 19:17 | RAD REPORT ---
EXAM DESCRIPTION: USCarotid Artery Bilateral04/21/2022 7:10 pm CLINICAL HISTORY: syncope FINDINGS: The velocity of the right internal carotid artery equals 62 cm/sec. The right ICA/CCA rati o 0.6 The velocity of the left internal carotid artery equals 51 cm/sec. The left ICA/CCA ratio 0.6 Mild plaque is present within the carotid arteries. The vertebral arteries demonstrate antegrade flow IMPRESSION: Mild plaque within the carotid arteries without evidence of a hemodynamically significan t stenosis NASCET criteria used. Mild 0-49% stenosis Moderate 50-69% stenosis Severe 70-99% stenosis
[2022-04-21] MEDS: DOXAZOSIN 4 MG TAB PO SCH (20:37)
[2022-04-21] MEDS: ATORVASTATIN 20 MG TAB PO SCH (20:38)
--- NOTE | 2022-04-22 05:52 | P.PN ---
Date of Service: 04/22/22 Subjective: no acute events overnight improving working / walking with PT BP remains high at times ROS: 10 point ROS as noted above, otherwise negative Physical exam GEN: Alert, oriented, NAD HEENT: Normal conjunctiva, sclera anicteric CV: Regular rate and rhythm, no edema Pulm: Non-labored respirations on room air ABD: Soft, nontender, nondistended Integumentary: No rashes Neuro: Normal speech, normal affect Problem List Frequent falls/increased risk for falls Orthostasis new tremors in b/l upper extremities NSTEMI Hypertension Hyperlipidemia GERD 3-4 falls in last few days associated with standing up, having bilateral upper extremity tremors, then falling. one episode occurred after climbing a flight of stairs denies tremor at rest concerned for orthostasis; possible cardiac / vascular issue leading to decreased perfusion temporarily +orthostatic vitals on day of admission MRI/MRA ordered: +Hygroma neurology consulted - recommends orthostatic precautions, may benefit from correction / 29/03 care; patient only wants to go home echo ordered, normal lives alone, high fall risk refused SNF elevated troponin possibly from falls vs ischemia; cardiology consulted; echo without wall motiona if no wall motion abnormality, likely further eval as outpatient resumed home anti-hypertensives, adjust as needed; avoid hypotension significant pains thoughouggh Code: full Dispo: home, likely tomorrow Time Spent Managing Pts Care (In Minutes): 35
[2022-04-22 06:15] LABS: Magnesium 2.3 mg/dL (1.8-2.4); Potassium 3.9 mmol/L (3.5-5.1)
[2022-04-22] MEDS: PANTOPRAZOLE 40MG TABLET PO SCH (06:41)
[2022-04-22] MEDS: OXcarbazepine 150 MG TAB PO SCH ×2 (08:40→20:32)
[2022-04-22] MEDS: ENOXAPARIN 40 MG/0.4 ML SQ SCH (08:40)
[2022-04-22] MEDS: METOPROLOL XL 50 MG TAB PO SCH (08:41)
[2022-04-22] MEDS: SPIRONOLACTONE 25 MG TABLET PO SCH (08:41)
[2022-04-22] MEDS: GABAPENTIN 300 MG CAP PO SCH ×2 (08:41→20:32)
[2022-04-22] MEDS: lisinopriL 20 MG TAB PO SCH (08:41)
[2022-04-22] MEDS: ASPIRIN EC 81 MG TAB PO SCH (08:41)
[2022-04-22] MEDS ORDERED: POTASSIUM CL SA 10 MEQ TAB PO ONE (09:00)
--- NOTE | 2022-04-22 11:37 | PN ---
Patient was seen by Dr. Rockwell for near-syncope, elevated troponin, status post fall. She had a norm al carotid Doppler. She is 89. Has a history of hypertension, gastroesophageal reflux disease, and dyslipidemia. She is fairly asymptomatic today. Has never had any chest pain. Echocardiogram to ev aluate her aortic valve is pending for today. We will continue to follow. No change in medical denise tment at this point. MANUEL/FABIAN Voice ID: [id number] Report ID: [id number]
--- NOTE | 2022-04-22 14:17 | ECHO ---
HEIGHT: 5 ft 7 in WEIGHT: 160 lb 0 oz DATE OF STUDY: 04/22/[address]: Jose Jack MD 2-DIMENSIONAL: YES M.MODE: YES DOPPLER: YES COLOR FLOW: YES TDS: NO PORTABLE: YES DEFINITY: NO BUBBLE STUDY: NO DIAGNOSIS: NEAR SYNCOPE, ELEVATED TROPONIN CARDIAC HISTORY: CATHERIZATION: NO SURGERY: NO PROSTHETIC VALVE: NO PACEMAKER: NO MEASUREMENTS (cm) DIASTOLIC (NORMALS) SYSTOLIC (NORMALS) IVSd 0.9 (0.6-1.2) LA Diam 2.7 (1.9-4.0) LVEF 66% LVIDd 3.2 (3.5-5.7) LVIDs 2.1 (2.0-3.5) %FS 35% LVPWd 1.1 (0.6-1.2) Ao Diam 2.8 (2.0-3.7) 2 DIMENSIONAL ASSESSMENT: RIGHT ATRIUM: NORMAL LEFT ATRIUM: NORMAL RIGHT VENTRICLE: NORMAL LEFT VENTRICLE: NORMAL TRICUSPID VALVE: NORMAL MITRAL VALVE: NORMAL PULMONIC VALVE: NORMAL AORTIC VALVE: NORMAL PERICARDIAL EFFUSION: NONE AORTIC ROOT: NORMAL LEFT VENTRICULAR WALL MOTION: NORMAL. DOPPLER/COLOR FLOW: NORMAL. COMMENTS: NORMAL LEFT VENTRICULAR SIZE AND FUNCTION. NO WALL MOTION ABNORMALITY. NO EFFUSION. TECHNOLOGIST: ARNOL DOMINGUEZ
[2022-04-22] MEDS: DOXAZOSIN 2 MG TAB ONE ×2 (20:12→20:33)
[2022-04-22] MEDS: ATORVASTATIN 20 MG TAB PO SCH (20:32)
[2022-04-22] MEDS: DOXAZOSIN 4 MG TAB PO SCH (20:33)
--- NOTE | 2022-04-23 00:57 | CON ---
Consultation called because of repeated falls. History Of Present Illness: Ms. Alvarez is an 89-year-old right-handed patient with hypertension, dyslipidemia, and arthritis, who comes to [facility] after a recent fall. Fal ls occur without significant warning and she goes down without loss of consciousness, tonic or clonic activity, tongue biting, or loss of bowel and bladder control. After her fall on the 20 of April in the emergency room, her workup revealed elevated CPK of 258 with elevated troponins and BNP. Her head and cervical spine MRI were negative for any acute changes, however, MRI of the brain did ident whit[place] a small to moderate subdural hygromas along the cerebral cortices bilaterally, which have develop ed since the study done in 2020. The radiologist noted that these changes may be seen with hypotensi ve episodes. Her magnetic resonance angiogram of her neck showed mild plaque within the carotid and vertebral arteries, but none significant. The patient received hydration and actually ambulated with physical therapy, being able to stand, transfer, and did those tasks with modified independence. Mady trivedi did ambulate 45 feet with a rolling walker and contact guard assistance. She was offered an [facility] for inpatient rehabilitation, but the patient refused and wanted to go home to do therapy by formerly [facility], [facility]. Blood work showed no infection with normal white blood cell count. Hemoglobin was slightly low at 11 .6. INR normal at 1.17. Creatinine was normal and remained normal during hospitalization. Choleste rol panel showed total cholesterol 177, LDL 104, HDL 63, with a cholesterol to HDL ratio 2.81. Urina lysis showed a trace esterase, but was otherwise unremarkable and COVID-19 testing was unremarkable. Note, echocardiogram showed ejection fraction of 66% and was a normal study. Past Medical History: As noted. Allergies: NO KNOWN DRUG ALLERGIES. Medications: Norvasc 10 mg daily, Lipitor 10 mg at bedtime, Cardura 4 mg at bedtime, gabapentin 300 mg twice daily, lisinopril 40 mg daily, metoprolol 50 mg daily, Trileptal 300 mg twice daily, omepraz ole 200 mg daily, and spironolactone 25 mg daily. Family History: Positive for stroke in mother and sister. Social History: No alcohol, tobacco, or IV drug use. She resides at home with family. Review of Systems: She has had repeated falls, some diffuse weakness, myalgias, and arthralgias. No significant headach e despite the hygromas. Otherwise, negative on a systems review. Physical Examination: Vital Signs: Blood pressure 179/79, pulse of 86, respiratory rate 16 to 20, temperature 97.4, oxygen saturation 93% to 95%. Weight 160 pounds, height 5 feet 7 inches, BMI 25.1. General: Ms. Alvarez is resting in bed. She is in no significant distress. HEENT: Despite hygromas, she is normocephalic and atraumatic. Sclerae anicteric. Oropharynx is [place] [address] and pink. Neck: Supple. Chest: Clear. Extremities: Show no cyanosis or edema. Abdomen: Soft. Neurologic: Although, slow to respond, she is alert and oriented to situation. She follows commands appropriately. Cranial nerves do not show focal deficits on 2 through 12. Motor examination showed mild diffuse weakness in both the upper and lower extremities without focal findings. Sensory exam shows stocking-glove loss to light touch and temperature. Reflexes are depressed to absent in the ex tremities. Coordination intact in the upper and lower extremities. Gait, she does require contact g uard assistance and only ambulated about 15 feet total with a rolling walker. Assessment: Ms. Alvarez is an 89-year-old patient with sudden falls, possibly related to changes in b lood pressure from very high levels to perhaps low normal. She does have hygromas on MRI suggestive of chronic falls with blows to the head. The patient denies seizure activity, but is on antiepilepti c medications. She refused inpatient rehabilitation, but she was a good candidate to help improve he r coordination, balance, gait, and decrease her tendency to fall. She wants to go home to do home he alth to help with her balance and coordination and gait along with safety awareness. Continue antiep ileptic medications. Continue with physical therapy if it is done by Home Health. She should ambula te with a walker at all times. She may benefit from ambulatory video EEG monitoring to determine if she epileptic discharges are the etiology for her sudden falls. Her cervical spine MRI did not show any significant abnormalities on CT scan, however, MRI of the cervical spine may be helpful to rule o ut soft tissue injury or canal stenosis. LB/MODL Voice ID: [id number] Report ID: [id number]
[2022-04-23 05:51] LABS: Magnesium 2.3 mg/dL (1.8-2.4); Potassium 4.2 mmol/L (3.5-5.1)
[2022-04-23] MEDS: PANTOPRAZOLE 40MG TABLET PO SCH (06:29)
[2022-04-23] MEDS: OXcarbazepine 150 MG TAB PO SCH (08:48)
[2022-04-23] MEDS: METOPROLOL XL 50 MG TAB PO SCH (08:48)
[2022-04-23] MEDS: lisinopriL 20 MG TAB PO SCH (08:48)
[2022-04-23] MEDS: ENOXAPARIN 40 MG/0.4 ML SQ SCH (08:49)
[2022-04-23] MEDS: SPIRONOLACTONE 25 MG TABLET PO SCH (08:49)
[2022-04-23] MEDS: ASPIRIN EC 81 MG TAB PO SCH (08:49)
[2022-04-23] MEDS: GABAPENTIN 300 MG CAP PO SCH (08:49)
[2022-04-23 10:15] VITALS: O2SAT 93
[2022-04-23 11:30] VITALS: BP 138/63; TEMP 97.2
--- NOTE | 2022-04-23 19:15 | P.DS ---
Admission Date: 04/20/22 Discharge Date: 04/23/22 Disposition: ROUTINE DISCHARGE Reason for Admission: Falls, elevated troponin Consultations: Neurology - Dr. Shields Cardiology - Dr. Mixon Brief History of Present Illness: 89-year-old female with history of GERD, hypertension, hyperlipidemia, arthritis presents the emergency department for multiple falls, weakness. She reports she had 2 falls today, 1 yesterday she is unsure why she falls she feels like her legs are giving out on her she denies syncope, chest pain, dizziness, headaches or shortness of breath. She was evaluated in the emergency department her labs were significant for hemoglobin 10.8 hematocrit 32.1 GFR 44 CPK 258 high- sensitivity troponin 62.[address] of the head/C-spine was negative for acute findings, pelvic x-ray without any fractures EKG without ST elevations, patient denies any chest pain at this time reports she started to feel weak when she stands up Hospital Course: Problem List Frequent falls/increased risk for falls +Orthostatic vitals mild GIDEON NSTEMI, troponin leak secondary to demand ischemia / fall Hypertension Hyperlipidemia GERD Patient was found to have orthostatic vitals and appeared dehydrated on admission. She was given some gentle IV fluids and had improvement. MRI brain revealed small-moderate hygromas. Neurology was consulted, recommend strong consideration for 24/7 monitoring / drum plater placement, as this is felt to be evidence of prior brain trauma from her previous falls. Recommended to always use a walker when ambulating. She has had falls and +orthostatic vitals in the past as well. Suspect she has orthostatic vitals at baseline, and gets exacerbated by dehydration. Counselled on adequate hydration. Continue anti-hypertensive medications - she would occasionally have systolic blood pressures up to 170s, with next check in 140s. She was evaluated by PT and ambulated in the room with a wheeled walker. Recommended to continue PT at home to improve mobility. She has previously been recommended to wear compression stockings, and recommended to continue this as much as possible. She was counselled on orthostasis, moving slowly when changing positions / standing up. Follow up with PCP within 1 week Follow up with Dr. Shields, Neurology, in ~[address] brain in ~4-6 months to evaluate for any change of the hygromas No changes in medications. Physical exam GEN: Alert, oriented, NAD HEENT: Normal conjunctiva, sclera anicteric CV: Regular rate and rhythm, no edema Pulm: Non-labored respirations on room air ABD: Soft, nontender, nondistended Integumentary: No rashes Neuro: Normal speech, normal affect, str 5/5 in bilateral upper/lower extremities, CNII-XII grossly intact Vital Signs/Physical Exam: Temp Pulse Resp BP Pulse Ox 97.2 F 79 18 138/63 98 04/23/22 11:29 04/23/22 11:29 04/23/22 11:29 04/23/22 11:29 04/23/22 11:29 Laboratory Data at Discharge: WBC 5.30 K/uL (4.3-10.9) 04/21/22 05:10 Hgb 11.6 g/dL (12.0-15.0) L 04/21/22 05:10 Hct 34.5 % (36.0-45.0) L 04/21/22 05:10 Plt Count 213 K/uL (152-406) 04/21/22 05:10 PT 12.9 SECONDS (9.5-12.5) H 04/19/22 23:31 INR 1.17 04/19/22 23:31 Sodium 136 mmol/L (136-145) 04/23/22 05:11 Potassium 4.2 mmol/L (3.5-5.1) 04/23/22 05:11 BUN 28 mg/dL (7-18) H 04/23/22 05:11 Creatinine 0.98 mg/dL (0.55-1.3) 04/23/22 05:11 Glucose 99 mg/dL (74-106) 04/23/22 05:11 Magnesium 2.3 mg/dL (1.8-2.4) 04/23/22 05:11 Total Bilirubin 0.6 mg/dL (0.2-1.0) 04/21/22 05:10 AST 17 U/L (15-37) 04/21/22 05:10 ALT 19 U/L (12-78) 04/21/22 05:10 Alkaline Phosphatase 77 U/L (45-117) 04/21/22 05:10 Triglycerides 51 mg/dL (<150) 04/20/22 05:20 Cholesterol 177 mg/dL (<200) 04/20/22 05:20 HDL Cholesterol 63 mg/dL (40-60) H 04/20/22 05:20 Cholesterol/HDL Ratio 2.81 04/20/22 05:20 Home Medications: Doxazosin [Cardura*] 4 mg PO BEDTIME 02/14/21 Gabapentin 300 mg PO BID 02/14/21 Lisinopril [Zestril] 40 mg PO DAILY 02/14/21 Metoprolol Succinate 50 mg PO DAILY 02/14/21 OXcarbazepine [Trileptal] 300 mg PO BID 02/14/21 Omeprazole 20 mg PO DAILY 02/14/21 Spironolactone [Aldactone*] 25 mg PO DAILY 02/14/21 Physician Discharge Instructions: Patient was found to have orthostatic vitals and appeared dehydrated on admission. She was given some gentle IV fluids and had improvement. MRI brain revealed small-moderate hygromas. Neurology was consulted, recommend strong consideration for 24/7 monitoring / drum plater placement, as this is felt to be evidence of prior brain trauma from her previous falls. Recommended to always use a walker when ambulating. She has had falls and +orthostatic vitals in the past as well. Suspect she has orthostatic vitals at baseline, and gets exacerbated by dehydration. Counselled on adequate hydration. Continue anti-hypertensive medications - she would occasionally have systolic blood pressures up to 170s, with next check in 140s. She was evaluated by PT and ambulated in the room with a wheeled walker. Recommended to continue PT at home to improve mobility. She has previously been recommended to wear compression stockings, and recommended to continue this as much as possible. She was counselled on orthostasis, moving slowly when changing positions / standing up. Follow up with PCP within 1 week Follow up with Dr. Shields, Neurology, in ~[address] brain in ~4-6 months to evaluate for any change of the hygromas No changes in medications. [facility] Services Needed: Home health with physical therapy Name of Company: Date or Referral: 04-23-22 Followup: Unknown,U [Primary Care Provider] - 1-2 Weeks Time spent managing pt's care (in minutes): 45
== END 2022-04-23 13:09 | disposition home or self-care (01) ==
LOC: ER 21:53 → ERHOLD 04-20 01:58 → 2ND 04-20 20:37
PROVIDERS: ADMIT Internal Medicine; ATTEND Hospitalist
DX: I21.A1 Myocardial infarction type 2 (principal); I10 Essential (primary) hypertension; N17.9 Acute kidney failure, unspecified; G96.08 Other cranial cerebrospinal fluid leak; R25.1 Tremor, unspecified; R55 Syncope and collapse; E78.5 Hyperlipidemia, unspecified; R01.1 Cardiac murmur, unspecified; K21.9 Gastro-esophageal reflux disease without esophagitis; M19.90 Unspecified osteoarthritis, unspecified site; R29.6 Repeated falls; Z91.81 History of falling; Z79.899 Other long term (current) drug therapy; Z88.2 Allergy status to sulfonamides; Z20.822 Contact with and (suspected) exposure to COVID-19; Z82.3 Family history of stroke
CPT/HCPCS: 93005; 93306; 87088; 85025 ×2; 87086; 80048 ×3; 36415 ×4; 83735 ×3; 82550; 85610; 80061; 80076; 84484 ×3; 80053; 83880; 70450; 71250; 72125; 71045; 72170; 93880; 70553; 70544; 70549; 97110 ×2; 97112; 97116 ×4; 97161; 97530 ×3; 96374; 99285; 87811; A9577; J0360; J1940; J1650 ×3; G0378 ×6; 81003; 81015